=== PATIENT | male | born 1975 | race Hispanic/Latino ===

== ENCOUNTER 2017-04-24 07:28 | Inpatient (IN) | payer MEDICAID ==
[2017-04-24 07:28] VITALS: BMI 33.9
--- NOTE | 2017-04-24 07:55 | ED PDOC ---
Lower Extremity Pain/Injury Time Seen by Provider: 04/24/17 07:34 Chief Complaint (Nursing): Lower Extremity Problem/Injury Chief Complaint (Provider): left foot pain History Per: Patient History/Exam Limitations: no limitations Onset/Duration Of Symptoms: Days (x 1) Additional Complaint(s): Frandy Arreola is a 41 year old male, with a previous medical history of diabetes, who presents to the ED with complaints of left foot pain ingoing since yesterday after he was helping his friend clean her basement. Patient denies any trauma to the foot, numbness or tingling. PMD: none provided Past Medical History Reviewed: Historical Data, Nursing Documentation, Vital Signs Vital Signs: Last Vital Signs Temp 97 F L 04/24/17 07:42 Pulse 104 H 04/24/17 07:42 Resp 18 04/24/17 07:42 BP 146/71 04/24/17 07:42 Pulse Ox 97 04/24/17 07:42 - Medical History PMH: Anxiety, Arthritis, Depression, Diabetes, HTN Denies: Chronic Kidney Disease - Family History Family History: States: Unknown Family Hx - Immunization History Hx Tetanus Toxoid Vaccination: No Hx Influenza Vaccination: No Hx Pneumococcal Vaccination: No - Home Medications Home Medications: Ambulatory Orders Medication Instructions Recorded GlipiZIDE [Glipizide] 10 mg PO BID 04/25/17 Insulin Aspart [Novolog] 28 unit SC BID 04/25/17 Insulin Glargine, Recombina 28 unit SC BID 04/25/17 [Lantus] - Allergies Allergies/Adverse Reactions: Allergies Allergy/AdvReac Type Severity Reaction Status Date / Time NSAIDS (Non-Steroidal Allergy Verified 04/25/17 11:47 Anti-Inflamma Review of Systems ROS Statement: Except As Marked, All Systems Reviewed And Found Negative Musculoskeletal: Positive for: Foot Pain (left foot) Neurological: Negative for: Numbness, Other (tingling ) Physical Exam - Reviewed Nursing Documentation Reviewed: Yes Vital Signs Reviewed: Yes - Physical Exam Appears: Positive for: Well, Non-toxic, No Acute Distress Head Exam: Positive for: ATRAUMATIC, NORMAL INSPECTION, NORMOCEPHALIC Skin: Positive for: Normal Color, Warm, Dry Extremity: Positive for: Normal ROM, Tenderness, Pedal Edema, Swelling, Other ( abrasion to the anterior 5th digit on the left foot. + erythema, no crepitus ). Negative for: Deformity Neurologic/Psych: Positive for: Alert, Oriented - Laboratory Results Result Diagrams: 04/24/17 08:26 04/24/17 08:26 - ECG O2 Sat by Pulse Oximetry: 97 (RA) Pulse Ox Interpretation: Normal Medical Decision Making Medical Decision Making: Initial Plan: * labs * PTT * PT * blood culture * accu-check * x-ray left foot * podiatry consult * reevaluation 07:54 Podiatry consulted, requesting blood work and will be seeing patient at bedside. Scribe Attestation: Documented by Martine Humphrey, acting as a scribe for Martine Starr MD. Provider Scribe Attestation: All medical record entries made by the Scribe were at my direction and personally dictated by me. I have reviewed the chart and agree that the record accurately reflects my personal performance of the history, physical exam, medical decision making, and the department course for this patient. I have also personally directed, reviewed, and agree with the discharge instructions and disposition. Disposition - Clinical Impression Clinical Impression: Cellulitis of foot - Patient ED Disposition Is Patient to be Admitted: Yes - Disposition Disposition Time: 09:16 Condition: STABLE - Pt Status Changed To: Hospital Disposition Of: Inpatient - Admit Certification Admit to Inpatient:: After my assessment, the patient will require hospitalization for at least two midnights. This is because of the severity of symptoms shown, intensity of services needed, and/or the medical risk in this patient being treated as an outpatient. - POA Present On Arrival: Poor Glycemic Control
[2017-04-24 08:31] LABS: BASO # 0.1 K/uL (0.0-0.2); BASO % 0.7 % (0.0-2.0); EOS # 0.4 K/uL (0.0-0.7); EOS % 3.1 % (0.0-4.0); HEMOGLOBIN 13.5 g/dL (12.0-18.0); LYMPH # 2.7 K/uL (1.0-4.3); LYMPH % 19.7 % (20.0-40.0); MEAN CELL VOLUME 88.3 fl (80.0-94.0); MEAN CORPUSCULAR HEMOGLOBIN 30.5 pg (27.0-31.0); MEAN CORPUSCULAR HGB CONC 34.5 g/dL (33.0-37.0); MEAN PLATELET VOLUME 7.6 fl (7.2-11.7); MONO # 0.8 K/uL (0.0-0.8); MONO % 5.6 % (0.0-10.0); NEUT # 9.6 K/uL (1.8-7.0); NEUT % 70.9 % (50.0-75.0); NRBC % 0.1 % (0.0-0.0); RBC 4.42 Mil/uL (4.40-5.90); RED CELL DISTRIBUTION WIDTH 13.3 % (11.5-14.5); WHITE BLOOD COUNT 13.6 K/uL (4.8-10.8)
[2017-04-24 08:38] LABS: ALB/GLOB RATIO 1.4 (1.0-2.1); ALBUMIN 3.9 g/dL (3.5-5.0); ALT/SGPT 37 U/L (21-72); AST/SGOT 15 U/L (17-59); BLOOD UREA NITROGEN 22 mg/dl (9-20); CALCIUM 9.3 mg/dL (8.4-10.2); GFR AFRICAN-AMERICAN > 60; GFR NON-AFRICAN AMERICAN > 60
[2017-04-24 08:51] LABS: INR 1.1 (0.9-1.2); PARTIAL THROMBOPLASTIN TIME 30.8 Seconds (25.6-37.1); PROTHROMBIN TIME 12.2 Seconds (9.8-13.1)
[2017-04-24] MEDS ORDERED: Piperacillin/Tazobact 3.375 GM in Sodium Chloride 0.9% 100 ML IVPB STA (09:06)
--- NOTE | 2017-04-24 09:13 | CP.PCM.CON ---
History of Present Illness - History of Present Illness History of Present Illness: 41 y/o male with PMHx of DM, Anxiety, Arthritis, Depression, HTN seen at bedside in ED c/o pain in his left foot that is traveling up the leg secondary to open ulcer on the 5th digit. Pt states that he was helping his friend paint the basement yesterday and when he took his shoe off he noticed an open ulcer. Pt denies of any trauma to the foot. Pt states that he noticed his foot was swollen and red. Pt states that he is having pain that shoots up to his thigh. Pt denies of checking his blood sugar daily. Pt denies of knowing his HbA1c. Pt states that he follows up with his auto radiator specialist Dr. Alban De Los Santos. He states that he last saw his auto radiator specialist a year ago. Pt denies of any recent F/N/V/C/SOB. PMHx: Anxiety, Arthritis, Depression, Diabetes, HTN PSHx: Mastoid operation, Left foot 5th met operation, R foot surgery Allergies: NSAID SHx: Smoking (31 years 1 PPD), Denies of drinking and illicit drug usage Review of Systems - Constitutional Constitutional: As Per HPI Past Patient History - Infectious Disease Hx of Infectious Diseases: None - Past Social History Smoking Status: Heavy Smoker > 10 Cigarettes Daily - CARDIAC Hx Hypertension: Yes - PULMONARY Hx Respiratory Disorders: No - NEUROLOGICAL Hx Neurological Disorder: No - HEENT Hx HEENT Problems: No - RENAL Hx Chronic Kidney Disease: No - ENDOCRINE/METABOLIC Hx Diabetes Mellitus Type 2: Yes - HEMATOLOGICAL/ONCOLOGICAL Hx Blood Disorders: No - INTEGUMENTARY Hx Dermatological Problems: No - MUSCULOSKELETAL/RHEUMATOLOGICAL Hx Arthritis: Yes - GASTROINTESTINAL Hx Gastrointestinal Disorders: No - GENITOURINARY/GYNECOLOGICAL Hx Genitourinary Disorders: No - PSYCHIATRIC Hx Anxiety: Yes Hx Depression: Yes - SURGICAL HISTORY Hx Surgeries: Yes Other/Comment: "4 MASTOID OPERATIONS TO R EAR" - ANESTHESIA Hx Anesthesia: Yes Hx Anesthesia Reactions: No Hx Malignant Hyperthermia: No Meds Allergies/Adverse Reactions: Allergies Allergy/AdvReac Type Severity Reaction Status Date / Time NSAIDS (Non-Steroidal Allergy Verified 04/19/17 00:07 Anti-Inflamma - Medications Medications: Current Medications Vancomycin HCl 1 gm/ Sodium (Chloride) 250 mls @ 250 mls/hr IVPB STAT STA Stop: 04/24/17 10:05 Piperacillin Sod/Tazobactam (Sod 3.375 gm/ Sodium Chloride) 100 mls @ 100 mls/ hr IVPB STAT STA Stop: 04/24/17 10:05 Physical Exam - Constitutional Appears: Well, Non-toxic, No Acute Distress - Extremities Exam Additional comments: VASC: DP/PT pulses are palpable 1/4 of the left and 2/4 on right, 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 x 10, TG: warm to warm on left and warm to cool on right, non-pitting edema noted to the left foot, no edema noted on the right foot DERM: open ulcer on dorsum of the left 5th digit, wound bed is 70% granular 30% fibrotic, active serous drainage noted, no purulent drainage, no fluctuance, no probe to bone, no undermining, erythema streak extending proximally to ankle from forefoot; open lesion measuring 0.5cm on the dorsum of the 4th digit of the right foot with no active drainage or clinical suspicion of infection NEURO: protective sensation grossly diminished ORTHO: pain on palpation of the left 5th digit and forefoot - Neurological Exam Neurological exam: Alert, Oriented x3 - Psychiatric Exam Psychiatric exam: Normal Affect, Normal Mood Results - Vital Signs Recent Vital Signs: Last Vital Signs Temp 97 F L 04/24/17 07:42 Pulse 104 H 04/24/17 07:42 Resp 18 04/24/17 07:42 BP 146/71 04/24/17 07:42 Pulse Ox 97 04/24/17 07:59 - Labs Result Diagrams: 04/24/17 08:26 04/24/17 08:26 Labs: Laboratory Results - last 24 hr 04/24/17 04/24/17 04/24/17 08:26 08:26 08:26 WBC 13.6 H RBC 4.42 Hgb 13.5 Hct 39.1 MCV 88.3 MCH 30.5 MCHC 34.5 RDW 13.3 Plt Count 281 MPV 7.6 Neut % (Auto) 70.9 Lymph % (Auto) 19.7 L Maries % (Auto) 5.6 Eos % (Auto) 3.1 Baso % (Auto) 0.7 Neut # 9.6 H Lymph # 2.7 Maries # 0.8 Eos # 0.4 Baso # 0.1 PT 12.2 INR 1.1 APTT 30.8 Sodium 140 Potassium 4.0 Chloride 103 Carbon Dioxide 27 Anion Gap 13 BUN 22 H Creatinine 0.8 Est GFR ( Amer) > 60 Est GFR (Non-Af Amer) > 60 Random Glucose 262 H Calcium 9.3 Total Bilirubin 0.5 AST 15 L ALT 37 Alkaline Phosphatase 126 Total Protein 6.7 Albumin 3.9 Globulin 2.8 Albumin/Globulin Ratio 1.4 Assessment & Plan - Assessment and Plan (Free Text) Assessment: 41 y/o male seen at bedside in ED for open ulcer of the left 5th digit secondary to diabetic neuropathy Plan: Pt seen and evaluated in ED Pt discussed in details with attending Dr. Mott Vitals and labs reviewed (pt is afebrile and WBC @ 13.6) Wound culture taken X-rays taken of the left foot and reviewed Recommended IV abx Vanco/Zosyn as per Dr. Mott Dressing applied using betadine, DSD and kurlix Pt to be admitted under family medicine Podiatry to follow once in-house Thank you for the consult - Date & Time Date: 04/24/17 Time: 09:30
[2017-04-24] MEDS ORDERED: Piperacillin/Tazobact 3.375 gm Inj IVPB ONE (09:46)
[2017-04-24] MEDS ORDERED: Vancomycin 1 g Inj ONE (09:46)
--- NOTE | 2017-04-24 09:59 | CP.PCM.HP ---
History of Present Illness - History of Present Illness History of Present Illness: A 41 year old male with diabetes came for left foot pain and abrasion wound. He has had Type 2 diabetes since the age of 15. He says he takes lantus (he does not know the dose) and 28 units of Novolog insulin before each meal. He smokes one pack of cigarettes, and denies alcohol and drugs. He is unemployed. The podiatry did a wound dressing already. Present on Admission - Present on Admission Any Indicators Present on Admission: No History of DVT/PE: No History of Uncontrolled Diabetes: No Urinary Catheter: No Decubitus Ulcer Present: No Review of Systems - Cardiovascular Cardiovascular: As Per HPI - Gastrointestinal Gastrointestinal: As Per HPI - Genitourinary Genitourinary: As Per HPI - Musculoskeletal Musculoskeletal: As Per HPI (pain on right foot) Past Patient History - Infectious Disease Hx of Infectious Diseases: None - Past Social History Smoking Status: Heavy Smoker > 10 Cigarettes Daily - CARDIAC Hx Hypertension: Yes - PULMONARY Hx Respiratory Disorders: No - NEUROLOGICAL Hx Neurological Disorder: No - HEENT Hx HEENT Problems: No - RENAL Hx Chronic Kidney Disease: No - ENDOCRINE/METABOLIC Hx Diabetes Mellitus Type 2: Yes - HEMATOLOGICAL/ONCOLOGICAL Hx Blood Disorders: No - INTEGUMENTARY Hx Dermatological Problems: No - MUSCULOSKELETAL/RHEUMATOLOGICAL Hx Arthritis: Yes - GASTROINTESTINAL Hx Gastrointestinal Disorders: No - GENITOURINARY/GYNECOLOGICAL Hx Genitourinary Disorders: No - PSYCHIATRIC Hx Anxiety: Yes Hx Depression: Yes - SURGICAL HISTORY Hx Surgeries: Yes Other/Comment: "4 MASTOID OPERATIONS TO R EAR" - ANESTHESIA Hx Anesthesia: Yes Hx Anesthesia Reactions: No Hx Malignant Hyperthermia: No Meds Allergies/Adverse Reactions: Allergies Allergy/AdvReac Type Severity Reaction Status Date / Time NSAIDS (Non-Steroidal Allergy Verified 04/19/17 00:07 Anti-Inflamma Physical Exam - Eye Exam Pupil Exam: NORMAL ACCOMODATION - Respiratory Exam Respiratory Exam: NORMAL BREATHING PATTERN - Cardiovascular Exam Cardiovascular Exam: REGULAR RHYTHM - GI/Abdominal Exam GI & Abdominal Exam: Normal Bowel Sounds - Exam External exam: Lesions (left foot ulcer, swollen) Results - Vital Signs Recent Vital Signs: Last Vital Signs Temp 97 F L 04/24/17 07:42 Pulse 104 H 04/24/17 07:42 Resp 18 04/24/17 07:42 BP 146/71 04/24/17 07:42 Pulse Ox 97 04/24/17 09:11 - Labs Result Diagrams: 04/24/17 08:26 04/24/17 08:26 Assessment & Plan - Assessment and Plan (Free Text) Assessment: a 41 year old male who came with right foot ulcer diabetic food ulcer cellulitis Plan: wound dressing podiatry consult iv antibiotics, zosyn culture study diabetic control check HbA1c - Date & Time Date: 04/24/17 Time: 10:02 Decision To Admit - Pt Status Changed To: Hospital Disposition Of: Inpatient - Admit Certification Admit to Inpatient:: After my assessment, the patient will require hospitalization for at least two midnights. This is because of the severity of symptoms shown, intensity of services needed, and/or the medical risk in this patient being treated as an outpatient. - . Bed Request Type: Med/Surg Admitting Physician: Edilberto Brumfield
[2017-04-24] MEDS ORDERED: Piperacillin/Tazobact 3.375 GM in Sodium Chloride 0.9% 100 ML IVPB SCH (10:00)
--- NOTE | 2017-04-24 11:22 | RAD ---
PROCEDURE: Left Foot Radiographs. HISTORY: 5th digit pain COMPARISON: Comparison made with prior study 08/07/2016 FINDINGS: BONES: No evidence of acute displaced fracture nor dislocation. Status post resection head of the 5th metatarsal and questionably partial resection base of the proximal phalanx 5th toe. Heterotopic bone changes seen within the residual joint space and periosteal new bone along the distal aspect of the 5th metatarsal. There also appears to be proximal migration of the 5th digit. Prominence of the lateral and plantar soft tissues There is moderate to fairly significant hallux valgus deformity with minimal prominence of the overlying medial soft tissues. Mild lateral subluxation and flexion deformities the 2nd 3rd and 4th proximal phalanges. JOINTS: As above. SOFT TISSUES: No definitive gas seen within the soft tissues. OTHER FINDINGS: None. IMPRESSION: Postoperative resection changes of the head of the 5th metatarsal and possibly the base of the proximal phalanx 5th digit with surrounding heterotopic bone and periosteal new bone formation. . . There also appears to be proximal migration of the 5th digit. Prominence of the lateral and plantar soft tissues.
[2017-04-24 11:25] VITALS: BP 121/79; PULSE 85; RESP 20; TEMP 97.4
[2017-04-24] MEDS ORDERED: Insulin Regular 100 units/ml SC SCH (11:30)
[2017-04-24] MEDS ORDERED: Insulin Lispro (humaLOG) 100 Units/ml Inj SC SCH (11:30)
[2017-04-25] MEDS ORDERED: Enoxaparin 40 mg Syringe SC SCH (09:00)
[2017-04-27 09:59] VITALS: O2SAT 97
== END 2017-04-24 15:13 | disposition left against medical advice (07) | DRG 18 ==
LOC: H.ER 07:28 → H.ERHOLD 09:16 → H.MEDSURG1 10:40
PROVIDERS: ADMIT Internal Medicine; ATTEND Internal Medicine
DX: E11.40 Type 2 diabetes mellitus with diabetic neuropathy, unspecified (principal); L03.116 Cellulitis of left lower limb; E11.621 Type 2 diabetes mellitus with foot ulcer; L97.529 Non-pressure chronic ulcer of other part of left foot with unspecified severity; F17.210 Nicotine dependence, cigarettes, uncomplicated; I10 Essential (primary) hypertension; F41.9 Anxiety disorder, unspecified; M19.90 Unspecified osteoarthritis, unspecified site; F32.9 Major depressive disorder, single episode, unspecified

== ENCOUNTER 2018-06-13 20:02 | Inpatient (IN) | payer MEDICAID ==
[2018-06-13 20:20] VITALS: BMI 31.8
--- NOTE | 2018-06-13 21:13 | ED PDOC ---
Lower Extremity Pain/Injury Time Seen by Provider: 06/13/18 20:59 Chief Complaint (Nursing): Lower Extremity Problem/Injury Chief Complaint (Provider): left foot ulcer History Per: Patient History/Exam Limitations: no limitations Onset/Duration Of Symptoms: Days (1 week) Additional Complaint(s): 42 y/o male history of diabetes presents for evaluation of worsening ulcer to right foot x 1 week. Patient states it started small, so he picked at it and it has since grown in size with + drainage and pain. Denies fever, nausea/ vomiting, numbness/weakness right lower extremity, limitation of movement. Past Medical History Reviewed: Historical Data, Nursing Documentation, Vital Signs Vital Signs: Last Vital Signs Temp 98.4 F 06/13/18 20:20 Pulse 102 H 06/13/18 20:20 Resp 16 06/13/18 20:20 BP 123/70 06/13/18 20:20 Pulse Ox 98 06/13/18 20:20 - Medical History PMH: Anxiety, Arthritis (backs and LE), Bipolar Disorder, Depression, Diabetes, HTN, Schizophrenia (schizoaffective disorder) Denies: Chronic Kidney Disease - Family History Family History: States: Unknown Family Hx - Immunization History Hx Tetanus Toxoid Vaccination: No Hx Influenza Vaccination: No Hx Pneumococcal Vaccination: No - Home Medications Home Medications: Ambulatory Orders Medication Instructions Recorded GlipiZIDE [Glipizide] 10 mg PO BID 04/25/17 Insulin Aspart [Novolog] 28 unit SC BID 04/25/17 - Allergies Allergies/Adverse Reactions: Allergies Allergy/AdvReac Type Severity Reaction Status Date / Time NSAIDS (Non-Steroidal Allergy RASH Verified 06/13/18 20:20 Anti-Inflamma Review of Systems ROS Statement: Except As Marked, All Systems Reviewed And Found Negative Musculoskeletal: Positive for: Foot Pain (right) Physical Exam - Reviewed Nursing Documentation Reviewed: Yes Vital Signs Reviewed: Yes - Physical Exam Appears: Positive for: Well, Non-toxic, No Acute Distress Head Exam: Positive for: ATRAUMATIC, NORMAL INSPECTION, NORMOCEPHALIC Skin: Positive for: Normal Color Eye Exam: Positive for: Normal appearance ENT: Positive for: Normal ENT Inspection Cardiovascular/Chest: Positive for: Regular Rate, Rhythm Respiratory: Positive for: Normal Breath Sounds Pulses-Dorsalis Pedis (L): 2+ Pulses-Dorsalis Pedis (R): 2+ Pulses-Post. Tibialis (L): 2+ Pulses-Post. Tibialis (R): 2+ Extremity: Positive for: Normal ROM, Capillary Refill (<2 sec b/l LE), Other ( [id number] open ulceration plantar right foot base 1st digit. + drainage noted around borders, + surrounding tenderness. FROM RLE, distal NV/motor intact). Negative for: Calf Tenderness Neurologic/Psych: Positive for: Alert, Oriented - Laboratory Results Result Diagrams: 06/13/18 21:20 06/13/18 21:20 - ECG ECG: Positive for: Viewed By Me (reviewed by ED attending) ECG Rhythm: Positive for: Sinus Rhythm O2 Sat by Pulse Oximetry: 98 - Radiology X-Ray: Viewed By Me X-Ray Interpretation: No Acute Disease - Other Rad xray right foot X-Ray: Viewed By Ut X-Ray Interpretation: no acute findings - Progress ED Course And Treament: labs, xray, podiatry eval Patient evaluated by podiatry resident; recommends admission for IV abx and MRI in am IV vanco, IV zosyn, IV moprhine, IV fluids ordered Case discussed with Dr. Garcia, medical service on-call, recommends adding arterial doppler Disposition - Clinical Impression Clinical Impression: Diabetic foot ulcer, Uncontrolled diabetes mellitus - Patient ED Disposition Is Patient to be Admitted: No - Disposition Disposition Time: 23:30 Condition: FAIR - Pt Status Changed To: Hospital Disposition Of: Inpatient - Admit Certification Admit to Inpatient:: After my assessment, the patient will require hospitalization for at least two midnights. This is because of the severity of symptoms shown, intensity of services needed, and/or the medical risk in this patient being treated as an outpatient.
[2018-06-13] MEDS ORDERED: Povidone Iodine Topical 10% Sol ONE (22:15)
[2018-06-13 22:25] LABS: BASO # 0.1 K/uL (0.0-0.2); BASO % 0.6 % (0.0-2.0); EOS # 0.5 K/uL (0.0-0.7); HEMOGLOBIN 14.2 g/dL (12.0-18.0); LYMPH # 3.8 K/uL (1.0-4.3); LYMPH % 30.8 % (20.0-40.0); MEAN CELL VOLUME 89.7 fl (80.0-94.0); MEAN CORPUSCULAR HEMOGLOBIN 30.2 pg (27.0-31.0); MEAN CORPUSCULAR HGB CONC 33.6 g/dL (33.0-37.0); MEAN PLATELET VOLUME 8.1 fl (7.2-11.7); MONO # 0.7 K/uL (0.0-0.8); MONO % 5.5 % (0.0-10.0); NEUT # 7.2 K/uL (1.8-7.0); NEUT % 59.1 % (50.0-75.0); NRBC % 0.1 % (0.0-0.0); RBC 4.71 Mil/uL (4.40-5.90); RED CELL DISTRIBUTION WIDTH 13.3 % (11.5-14.5); WHITE BLOOD COUNT 12.2 K/uL (4.8-10.8)
[2018-06-13 22:28] LABS: ALB/GLOB RATIO 1.3 (1.0-2.1); ALBUMIN 4.1 g/dL (3.5-5.0); ALT/SGPT 29 U/L (21-72); AST/SGOT 17 U/L (17-59); BLOOD UREA NITROGEN 19 mg/dl (9-20); CALCIUM 9.5 mg/dL (8.4-10.2); GFR NON-AFRICAN AMERICAN > 60
[2018-06-13] MEDS ORDERED: Sodium Chloride 0.9% 1,000 ML IV STA (22:32)
--- NOTE | 2018-06-13 22:44 | CP.PCM.CON ---
History of Present Illness - History of Present Illness History of Present Illness: Podiatry consult notes for attending Dr. Carranza 42 y/o M patient with PMH of DM and diabetic neuropathy seen and evaluated in the ED for painful ulcer at his right foot. Patient states that he used to have callus under his right big toe. Patient states that the skin at his right foot started break down a week and half ago. Patient states that his took care of it and she used to do local wound care to his foot wound using a cream that he can't recall its name and dressing. Patient states that yesterday his gave to a baby so he had to take care of his wound himself. Patient states that he was surprised to see the wound like this today so he decided to come to the ED. Patient states that his wound is under his right big toe. painful, continuous throbbing pain. 10/10 on VAS scale. Patient states that he feels that his right foot is more swollen than his left one. He states that he didn't try any medications for the pain and he has to walk on the outer side of his foot. Patient denies any F/N/V/C or SOB. He states that he has neuropathy and he is taking Gabapentin 300 mg twice/day but it doesn't help him. He states that he has diabetes and it's non controlled as he can't control his food habits. He states that 1 and half year ago his left little toe got amputated after he stub it and didn't feel the injury due to his neuropathy. PMH: DM, diabetic neuropathy, anexiety, Arthritis, Bipolar Disorder, Depression , HTN and Schizophrenia PSH: Left 5th toe amputation Allergies: NSAID Social Hx: Smoker tobacco 1 pack/day, Denies drinking or illicit drug use. work in construction. Review of Systems - Review of Systems Review of Systems: As per HPI Past Patient History - Infectious Disease Hx of Infectious Diseases: None - Past Medical History & Family History Past Medical History?: Yes - Past Social History Smoking Status: Heavy Smoker > 10 Cigarettes Daily - CARDIAC Hx Hypertension: Yes - PULMONARY Hx Respiratory Disorders: No - NEUROLOGICAL Hx Neurological Disorder: No - HEENT Hx HEENT Problems: No - RENAL Hx Chronic Kidney Disease: No - ENDOCRINE/METABOLIC Hx Diabetes Mellitus Type 2: Yes - HEMATOLOGICAL/ONCOLOGICAL Hx Blood Disorders: No - INTEGUMENTARY Hx Dermatological Problems: No - MUSCULOSKELETAL/RHEUMATOLOGICAL Hx Arthritis: Yes (backs and LE) - GASTROINTESTINAL Hx Gastrointestinal Disorders: No - GENITOURINARY/GYNECOLOGICAL Hx Genitourinary Disorders: No - PSYCHIATRIC Hx Anxiety: Yes Hx Bipolar Disorder: Yes Hx Depression: Yes Hx Schizophrenia: Yes (schizoaffective disorder) - SURGICAL HISTORY Hx Surgeries: Yes Other/Comment: right ear surgery. right and left foot surgery - ANESTHESIA Hx Anesthesia: Yes Hx Anesthesia Reactions: No Hx Malignant Hyperthermia: No Meds Allergies/Adverse Reactions: Allergies Allergy/AdvReac Type Severity Reaction Status Date / Time NSAIDS (Non-Steroidal Allergy RASH Verified 06/13/18 20:20 Anti-Inflamma - Medications Medications: Current Medications Tramadol HCl (Ultram) 50 mg PO STAT STA Stop: 06/13/18 22:18 Last Admin: 06/13/18 22:23 Dose: 50 mg Physical Exam - Constitutional Appears: Well, Non-toxic, No Acute Distress - Head Exam Head Exam: ATRAUMATIC, NORMOCEPHALIC - Extremities Exam Additional comments: Right lower extremity focused exam: Vasc: DP/PT 1/4, Cap refill < 3 sec in all digits, Temp gradient warm to warmer from proximal to distal. Pedal hair present. Minimal non pitting edema in the left foot and ankle area. Nuero: Gross sensation intact, Protective sensation diminished, Ipswitch 0/3. Derm: Rounded superficial ulcer submet 1, Measures 3.5 cm in duiameter and 0.1 cm in depth, edges are mildly hyperkeratotic, malodor noted, minimal serous purulent, positive undermining, No tracking or probing to bone, Base is granular 100%. diffuse dryness of the skin of the plantar aspect of the foot. Erythema noted in the javed-wound area. MSK: muscle power couldn't be evaluated due to guarding because of pain. Pain on palpating the periulcerative area. pain with ROM of the left foot against resistance. Cavus foot type. - Neurological Exam Neurological exam: Alert, Oriented x3 Results - Vital Signs Recent Vital Signs: Last Vital Signs Temp 98.4 F 06/13/18 20:20 Pulse 102 H 06/13/18 20:20 Resp 16 06/13/18 20:20 BP 123/70 06/13/18 20:20 Pulse Ox 98 06/13/18 21:13 - Labs Result Diagrams: 06/13/18 21:20 06/13/18 21:20 Labs: Laboratory Results - last 24 hr 06/13/18 06/13/18 06/13/18 20:26 21:20 21:20 Sodium 140 Potassium 4.6 Chloride 104 Carbon Dioxide 31 H Anion Gap 10 BUN 19 Creatinine 0.9 Est GFR ( Amer) > 60 Est GFR (Non-Af Amer) > 60 POC Glucose (mg/dL) 220 H Random Glucose 247 H Lactic Acid 1.3 Calcium 9.5 Total Bilirubin 0.5 AST 17 D ALT 29 Alkaline Phosphatase 132 H Total Protein 7.3 Albumin 4.1 Globulin 3.1 Albumin/Globulin Ratio 1.3 Assessment & Plan - Assessment and Plan (Free Text) Assessment: 42 y/o M patient seen and evaluated in the ED for painful ulcer left submetatarsal 1. Plan: Patient seen and evaluated in the ED. Plan discussed in details with attending Dr. Carranza. Chart, Vitals and labs reviewed; WBCs 12.2, Afebrile. Right foot X-ray reviewed; Soft tissue swelling submet 1, No signs of osteomyelitis. Ulcer dressed using betadine, telfa, 4X4 gauze and kerlix. Patient to be admitted by the primary team. Patient ulcer will be dressed using silvadine cream and DSD while in house. Dispensed right surgical shoe. Patient instructed to ambulate in the surgical shoe. MRI ordered for the patient to be done after admission Podiatry will follow up the patient while in house. - Date & Time Date: 06/13/18 Time: 22:59
[2018-06-13] MEDS ORDERED: Piperacillin/Tazobact 3.375 GM in Sodium Chloride 0.9% 100 ML IV ONE (23:22)
[2018-06-13] MEDS ORDERED: Vancomycin 1 g Inj ONE (23:44)
[2018-06-13] MEDS ORDERED: Piperacillin/Tazobact 3.375 gm Inj IVPB ONE (23:45)
[2018-06-14 02:46] VITALS: BP 132/84; PULSE 81; RESP 18; TEMP 98.1; O2SAT 98
[2018-06-14] MEDS ORDERED: Silver Sulfadiazine 1% CREAM (50 gm) TOP SCH (07:00)
--- NOTE | 2018-06-14 08:48 | RAD ---
Date of service: 06/13/2018 HISTORY: admit COMPARISON: 08/05/2012. FINDINGS: LUNGS: The lungs are well inflated and clear. PLEURA: No significant pleural effusion identified, no pneumothorax apparent. CARDIOVASCULAR: Normal. OSSEOUS STRUCTURES: No significant abnormalities. VISUALIZED UPPER ABDOMEN: Normal. OTHER FINDINGS: None. IMPRESSION: No acute findings.
--- NOTE | 2018-06-14 09:08 | CARD ---
APPROVED REPORT Date of service: 06/14/2018 EKG Measurement Heart [id number] <Conclusion> Normal sinus rhythm Low voltage QRS Septal infarct, age undetermined Abnormal ECG
--- NOTE | 2018-06-14 10:10 | RAD ---
Date of service: 06/13/2018 PROCEDURE: Right Foot Radiographs. HISTORY: ulcer base 1st digit COMPARISON: None. FINDINGS: BONES: Bone alignment and mineralization are normal. There is no acute displaced fracture or bone destruction. JOINTS: Normal. SOFT TISSUES: There is soft tissue swelling in the plantar foot and forefoot. OTHER FINDINGS: None. IMPRESSION: Soft tissue swelling in the plantar foot and forefoot. No evidence for osteomyelitis
== END 2018-06-14 02:45 | disposition left against medical advice (07) | DRG 294 ==
LOC: H.ER 20:02 → H.ERHOLD 23:53 → H.MEDSURG1 06-14 02:08
PROVIDERS: ADMIT Family Medicine; ATTEND Family Medicine
DX: E11.621 Type 2 diabetes mellitus with foot ulcer (principal); E11.40 Type 2 diabetes mellitus with diabetic neuropathy, unspecified; L97.519 Non-pressure chronic ulcer of other part of right foot with unspecified severity; F20.9 Schizophrenia, unspecified; E11.65 Type 2 diabetes mellitus with hyperglycemia; Z89.422 Acquired absence of other left toe(s); F41.9 Anxiety disorder, unspecified; M19.90 Unspecified osteoarthritis, unspecified site; I10 Essential (primary) hypertension; F17.210 Nicotine dependence, cigarettes, uncomplicated; F31.9 Bipolar disorder, unspecified

== ENCOUNTER 2018-07-13 23:52 | Emergency (ER) | payer MEDICAID ==
[2018-07-13 23:52] VITALS: BMI 31.8
[2018-07-14 03:21] LABS: VENOUS BLOOD GAS BASE EXCESS 2.1 mmol/L (0.0-2.0); VENOUS BLOOD GAS PCO2 57 mmHg (40-60); VENOUS BLOOD GAS PO2 31 mm/Hg (30-55); VENOUS BLOOD PH 7.32 (7.32-7.43)
[2018-07-14] MEDS ORDERED: Morphine 4 MG/ML VIAL IVP ONE (03:24)
[2018-07-14] MEDS ORDERED: Piperacillin/Tazobact 3.375 GM in Sodium Chloride 0.9% 100 ML IVPB STA (03:25)
[2018-07-14 03:27] LABS: BASO # 0.1 K/uL (0.0-0.2); EOS # 0.5 K/uL (0.0-0.7); HEMOGLOBIN 12.5 g/dL (12.0-18.0); LYMPH % 25.9 % (20.0-40.0); MEAN CELL VOLUME 88.5 fl (80.0-94.0); MEAN CORPUSCULAR HEMOGLOBIN 30.4 pg (27.0-31.0); MEAN CORPUSCULAR HGB CONC 34.4 g/dL (33.0-37.0); MEAN PLATELET VOLUME 7.9 fl (7.2-11.7); MONO # 0.6 K/uL (0.0-0.8); MONO % 5.1 % (0.0-10.0); NEUT # 7.3 K/uL (1.8-7.0); NRBC % 0.1 % (0.0-0.0); RBC 4.12 Mil/uL (4.40-5.90); RED CELL DISTRIBUTION WIDTH 13.2 % (11.5-14.5); WHITE BLOOD COUNT 11.5 K/uL (4.8-10.8)
--- NOTE | 2018-07-14 03:32 | ED PDOC ---
Lower Extremity Pain/Injury Time Seen by Provider: 07/14/18 02:10 Chief Complaint (Nursing): Lower Extremity Problem/Injury Chief Complaint (Provider): Lower Extremity Problem History Per: Patient History/Exam Limitations: no limitations Onset/Duration Of Symptoms: Days (a couple of days) Current Symptoms Are (Timing): Still Present Additional Complaint(s): 42 year old male with history of dm, htn, presents with left foot ulcer and left foot swelling onset a couple of days. Patient reports he has had a wound since summer. He noticed the left foot pain, swelling, and discharge and developed fever a couple of days ago. Patient has an ulcer on right food for months, but denies any discharge or pain to the area. Patient has been to [facility] multiple times for his right foot ulcer. PMD: None Past Medical History Reviewed: Historical Data, Nursing Documentation, Vital Signs Vital Signs: Last Vital Signs Temp 98.4 F 07/14/18 00:29 Pulse 106 H 07/14/18 00:29 Resp 18 07/14/18 00:29 BP 142/83 07/14/18 00:29 Pulse Ox 98 07/14/18 00:29 - Medical History PMH: Anxiety, Arthritis (backs and LE), Bipolar Disorder, Depression, Diabetes, HTN, Schizophrenia (schizoaffective disorder) Denies: Chronic Kidney Disease - Surgical History Other surgeries: amputation of left 5th toe - Family History Family History: States: Unknown Family Hx - Immunization History Hx Tetanus Toxoid Vaccination: No Hx Influenza Vaccination: No Hx Pneumococcal Vaccination: No - Home Medications Home Medications: Ambulatory Orders Medication Instructions Recorded Insulin Aspart [Novolog] 28 unit SC BID 04/25/17 Insulin Glargine,Hum.rec.anlog 28 unit SQ BID 07/14/18 [Lantus] - Allergies Allergies/Adverse Reactions: Allergies Allergy/AdvReac Type Severity Reaction Status Date / Time NSAIDS (Non-Steroidal Allergy RASH Verified 07/14/18 21:39 Anti-Inflamma Review of Systems ROS Statement: Except As Marked, All Systems Reviewed And Found Negative Constitutional: Positive for: Fever Musculoskeletal: Positive for: Foot Pain (left foot ulcer) Physical Exam - Reviewed Nursing Documentation Reviewed: Yes Vital Signs Reviewed: Yes - Physical Exam Appears: Positive for: Non-toxic, No Acute Distress Cardiovascular/Chest: Positive for: Regular Rate, Rhythm. Negative for: Murmur Respiratory: Positive for: Normal Breath Sounds. Negative for: Respiratory Distress Extremity: Positive for: Other (Left foot: diffuse swelling, more in left lateral aspect, tenderness on left lateral aspect, wound on plantar aspect foot , diffuse tenderness everywhere and more significant tenderness around wound, erythema around wound, swelling of whole foot. Right foot: 3 cm in diameter wound, no discharge, no erythema, no tenderness) Neurologic/Psych: Positive for: Alert, Oriented (x3) - Laboratory Results Result Diagrams: 07/14/18 03:05 07/14/18 03:05 - ECG O2 Sat by Pulse Oximetry: 98 (RA) Pulse Ox Interpretation: Normal Medical Decision Making Medical Decision Making: Time: 227 Initial Impression: left foot ulcer Differential diagnoses include but are not limited to: infection with cellulitis , possible osteomyelitis Initial Plan: --VBG --BMP --CBC with differentials --Erythrocyte sedimentation rate --Blood culture --Wound culture --Left foot XR --Right foot XR Time: 320 --Case discussed with podiatry resident, who will see the patient. Scribe Attestation: Documented by Piedad Buenrostro, acting as a scribe for Amol So MD Provider Scribe Attestation: All medical record entries made by the Scribe were at my direction and personally dictated by me. I have reviewed the chart and agree that the record accurately reflects my personal performance of the history, physical exam, medical decision making, and the department course for this patient. I have also personally directed, reviewed, and agree with the discharge instructions and disposition. Disposition - Clinical Impression Clinical Impression: Foot ulcer, Cellulitis of foot, Hyperglycemia - Patient ED Disposition Is Patient to be Admitted: Yes Discussed With : Brian Rucker Counseled Patient/Family Regarding: Studies Performed, Diagnosis - Disposition Disposition Time: 05:00 Condition: FAIR - Pt Status Changed To: Hospital Disposition Of: Inpatient - Admit Certification Admit to Inpatient:: After my assessment, the patient will require hospitalization for at least two midnights. This is because of the severity of symptoms shown, intensity of services needed, and/or the medical risk in this patient being treated as an outpatient. - POA Present On Arrival: Poor Glycemic Control, Pressure Ulcer
[2018-07-14] MEDS ORDERED: Vancomycin 1 g Inj ONE (03:33)
[2018-07-14] MEDS ORDERED: Piperacillin/Tazobact 3.375 gm Inj IVPB ONE (03:33)
[2018-07-14] MEDS ORDERED: Morphine 4 MG/ML VIAL ONE (03:33)
[2018-07-14 03:34] LABS: BLOOD UREA NITROGEN 26 mg/dl (9-20); GFR NON-AFRICAN AMERICAN > 60
[2018-07-14] MEDS ORDERED: Sodium Chloride 0.9% 1,000 ML IV STA (04:06)
[2018-07-14] MEDS ORDERED: Dextrose 50% SYRINGE Inj (50 ml) IV PRN (07:28)
[2018-07-14] MEDS ORDERED: Glucagon Recombinant 1 mg Inj IM PRN (07:28)
[2018-07-14 08:40] VITALS: BP 143/83; PULSE 95; RESP 15; TEMP 98.3
--- NOTE | 2018-07-14 09:44 | CP.PCM.PCO ---
Physician Communication Note - Physician Communication Note Physician Communication Note: Patient signed out AMA prior to seeing patient for podiatry consult.
--- NOTE | 2018-07-14 09:47 | RAD ---
Date of service: 07/14/2018 PROCEDURE: Left Foot Radiographs. HISTORY: left foot pain COMPARISON: Two thousand seventeen FINDINGS: BONES: Postoperative a section of the head of the 5th metatarsal. Associated surrounding soft tissue swelling and gas. Sclerotic changes of the 5th metatarsal shaft suspicious for chronic osteomyelitis. JOINTS: Normal. SOFT TISSUES: Normal. OTHER FINDINGS: None. IMPRESSION: Postoperative a section of the head of the 5th metatarsal. Associated surrounding soft tissue swelling and gas. Sclerotic changes of the 5th metatarsal shaft suspicious for chronic osteomyelitis.
--- NOTE | 2018-07-14 09:59 | RAD ---
Date of service: 07/14/2018 PROCEDURE: Right Foot Radiographs. HISTORY: right foot pain COMPARISON: None. FINDINGS: BONES: Normal. No fracture. JOINTS: Multiple hammertoe deformities SOFT TISSUES: Normal. OTHER FINDINGS: None. IMPRESSION: No fracture.
[2018-07-14] MEDS ORDERED: Insulin Lispro (humaLOG) 100 Units/ml Inj SC SCH (10:00)
--- NOTE | 2018-07-14 18:55 | HP ---
CHIEF COMPLAINT: Throat pain. HISTORY OF PRESENT ILLNESS: This is a 42-year-old male, known to have diabetes, hypertension, peripheral vascular disease, neuropathy, who was having left foot ulcer, purulent swelling, and pain for few days, which got worse. The patient has this wound for a long time, but he has noticed some yellow discharge, so the patient was brought into the emergency room and was admitted for further management. REVIEW OF SYSTEMS: Positive for bilateral leg pain, generalized weakness, malaise, fatigue, tired. Review of systems is negative for headache, dizziness, syncope, loss of consciousness, chest pain, shortness of breath, nausea, vomiting, diarrhea, or constipation. Review of systems of all other organ systems are unremarkable. PAST MEDICAL HISTORY: Significant for diabetes, hypertension, psychiatric disorder, namely bipolar disorder, depression, schizophrenia, arthritis, and anxiety. PAST SURGICAL HISTORY: Remarkable for amputation of left fifth toe. PERSONAL HISTORY: The patient is currently nonsmoker, nondrinker, no substance abuse. Very non-compliant with medications. The patient had multiple emergency room visits for mainly right foot ulcer. FAMILY HISTORY: Noncontributory. MEDICATIONS: The patient is supposed to be glipizide and insulin, seems to be non-compliant patient although. ALLERGIES: THE PATIENT IS ALLERGIC TO NSAIDS. PHYSICAL EXAMINATION: GENERAL: Well-built, well-nourished, overweight 42-year-old male, in no acute distress. VITAL SIGNS: Temperature 98.5, pulse 88, respirations 18, and blood pressure 140/72. HEENT: Pupils reacting to light. No JVD. No thyromegaly. No lymphadenopathy. No nystagmus. Normocephalic, atraumatic skull. HEART: S1 and S2, normal and regular. No significant murmurs, gallops, or rubs are heard. LUNGS: Shows good bilateral air exchange. No rales or rhonchi. ABDOMEN: Soft, nontender. No organomegaly. No fluid. Bowel sounds are present and normal. EXTREMITIES: Right lower extremity has eschar-covered plantar ulcer at big toe, that left foot has ulcer, status post amputation, a big purulent swelling along the lateral distal border, this ____ to oozing and discharge and a deep ulcer. No sign of acute ischemia. No calf swelling. No tenderness. BIOMEDICAL SPECIALIST: Exam is essentially unchanged. DIAGNOSTIC DATA: Available diagnostic data reviewed. WBC 11.5, hemoglobin 12.5, hematocrit 36.5, and platelets 346. ESR is 81, lactic acid is 2.1. Sodium 140, potassium 4.7, chloride 105, bicarb 26, BUN 26, creatinine 1, sugar is 346. ADMITTING IMPRESSION: Cellulitis and aphthous ulcer, left foot, rule out osteomyelitis, peripheral vascular disease, type 2 diabetes with hyperglycemia, anxiety, depression, bipolar disorder, obesity with body mass index of 32. PLAN: As ordered. Case and plan discussed with the patient. Brian Rucker MD
[2018-07-14 23:05] VITALS: O2SAT 98
[2018-07-14] MEDS ORDERED: Povidone Iodine Topical 10% Sol ONE (23:20)
--- NOTE | 2018-07-15 00:59 | CP.PCM.CON ---
Addendum entered and electronically signed by Braden Christianson DPM 07/17/18 14:40: Debridement of nonviable tissue including undermining tissue excised with a scissor and a pickup to the level of dermis/subcutaneous junction at the lateral plantar sub met 5 of the left foot until healthier wound bed and vital tissue appeared. Original Note: History of Present Illness - History of Present Illness History of Present Illness: Podiatry Consult Note- Dr. Eid 42M with PMHx of DM with neuropathy, HTN, arthritis, bipolar Disorder, depression, anxiety, and schizophrenia presents to the ED for worsening bilateral foot ulcerations R>L. Patient reports that in the last week, noticed increase in swelling and redness to left foot. Reports has been working a lot on the ladder. Patient reports that he has history of left foot infection requiring left 5th digit amputation. Patient rates lower extremity pain 9/10. Also reports numbness and tingling secondary to bilateral feet. Patient denies nausea, fever, shortness of breath, chest pains or chills. Denies having primary care physician PMH: DM with neuropathy, HTN, arthritis, bipolar Disorder, depression, anxiety, and schizophrenia PSH: left 5th digit amputation (Dr. Alban Carlisle DPM from [facility]), multiple ear surgery ALL: NSAID (swelling) MEDS: insulin FH: denies SH: reports smoking 1ppd 15 years, denies drinking EtOH or illicit drug use Past Patient History - Infectious Disease Hx of Infectious Diseases: None - Past Medical History & Family History Past Medical History?: Yes - Past Social History Smoking Status: Heavy Smoker > 10 Cigarettes Daily - CARDIAC Hx Hypertension: Yes - PULMONARY Hx Respiratory Disorders: No - NEUROLOGICAL Hx Neurological Disorder: No - HEENT Hx HEENT Problems: No - RENAL Hx Chronic Kidney Disease: No - ENDOCRINE/METABOLIC Hx Diabetes Mellitus Type 2: Yes - HEMATOLOGICAL/ONCOLOGICAL Hx Blood Disorders: No - INTEGUMENTARY Hx Dermatological Problems: No - MUSCULOSKELETAL/RHEUMATOLOGICAL Hx Arthritis: Yes (backs and LE) - GASTROINTESTINAL Hx Gastrointestinal Disorders: No - GENITOURINARY/GYNECOLOGICAL Hx Genitourinary Disorders: No - PSYCHIATRIC Hx Anxiety: Yes Hx Bipolar Disorder: Yes Hx Depression: Yes Hx Schizophrenia: Yes (schizoaffective disorder) - SURGICAL HISTORY Hx Surgeries: Yes Other/Comment: right ear surgery. right and left foot surgery - ANESTHESIA Hx Anesthesia: Yes Hx Anesthesia Reactions: No Hx Malignant Hyperthermia: No Meds Allergies/Adverse Reactions: Allergies Allergy/AdvReac Type Severity Reaction Status Date / Time NSAIDS (Non-Steroidal Allergy RASH Verified 07/14/18 21:39 Anti-Inflamma - Medications Medications: Current Medications Dextrose (Dextrose 50% Inj) 0 ml IV STAT PRN; Protocol PRN Reason: Hypoglycemia Protocol Dextrose (Glutose 15) 0 gm PO ONCE PRN; Protocol PRN Reason: Hypoglycemia Protocol Glucagon (Glucagen Diagnostic Kit) 0 mg IM STAT PRN; Protocol PRN Reason: Hypoglycemia Protocol Insulin Human Lispro (Humalog) 0 units SC Q6 YARY PRN Reason: Protocol Physical Exam - Extremities Exam Extremities exam: Negative for: calf tenderness Additional comments: Bilateral lower extremity focused exam: Vasc: DP/PT 1/4, Cap refill < 3 sec in all digits, temperature gradient warm to warm from proximal to distal. Pedal hair present. Minimal non pitting edema in the left foot and ankle area. Neuro: Gross sensation intact, protective sensation diminished Derm: Right: Circular ulceration measuring approximately 3.5 cm in diameter x .2 cm. Periwound mildly hyperkeratotic, malodor noted, minimal serous purulent, positive undermining, No tracking or probing to bone, Base is granular 100%. Diffuse dryness of the skin of the plantar aspect of the foot. Erythema noted in the javed-wound area. Left: Ulceration noted to the lateral aspect of forefoot at sub metatarsal 5 measuring approximately 3 cm x 3 cm x .2, erythema, with undermining noted. No tunneling, no active drainage, no probe to bone; large portion of periwound macerated with nonviable undermining and skin lifted from ulceration with likely larger ulceration noted, (+) mild odor, no fluctanance or abscess appreciated, no streaking Ortho: cavus foot type; pain with palpation to skin surrounding ulcerations, AROM 1-5 present Results - Vital Signs Recent Vital Signs: Last Vital Signs Temp 98.3 F 07/14/18 08:29 Pulse 95 H 07/14/18 08:29 Resp 15 07/14/18 08:29 BP 143/83 07/14/18 08:29 Pulse Ox 98 07/14/18 23:05 - Labs Result Diagrams: 07/14/18 03:05 07/14/18 03:05 Labs: Laboratory Results - last 24 hr 07/14/18 07/14/18 07/14/18 02:38 03:05 03:05 WBC 11.5 H RBC 4.12 L Hgb 12.5 Hct 36.5 MCV 88.5 MCH 30.4 MCHC 34.4 RDW 13.2 Plt Count 346 MPV 7.9 Neut % (Auto) 64.0 Lymph % (Auto) 25.9 [place] % (Auto) 5.1 Eos % (Auto) 4.0 Baso % (Auto) 1.0 Neut # (Auto) 7.3 H Lymph # (Auto) 3.0 [place] # (Auto) 0.6 Eos # (Auto) 0.5 Baso # (Auto) 0.1 ESR 81 H pO2 31 VBG pH 7.32 VBG pCO2 57 VBG HCO3 25.6 VBG Total CO2 31.1 H VBG O2 Sat (Calc) 66.3 H VBG Base Excess 2.1 H VBG Potassium 4.4 Sodium 135.0 140 Chloride 104.0 105 Glucose 363 H Lactate 2.1 FiO2 21.0 Potassium 4.7 Carbon Dioxide 26 Anion Gap 14 BUN 26 H Creatinine 1.0 Est GFR ( Amer) > 60 Est GFR (Non-Af Amer) > 60 Random Glucose 346 H Calcium 9.0 Venous Blood Potassium 4.4 Assessment & Plan - Assessment and Plan (Free Text) Assessment: 2M with PMHx of DM with neuropathy, HTN, arthritis, bipolar Disorder, depression, anxiety, and schizophrenia with worsening bilateral foot ulcerations R>L, and L 5th metatarsal (+) OM Plan: Patient seen and examined Discussed plan in detail with attending Dr. Eid Labs, vitals, chart reviewed, afebrile, leukocytosis WBC=13.6 X-rays reviewed: L foot X-ray Impression: Postoperative a section of the head of the 5th metatarsal. Associated surrounding soft tissue swelling and gas. Sclerotic changes of the 5th metatarsal shaft suspicious for chronic osteomyelitis. R foot X-ray - no fracture Wound culture taken of left foot no 07/14/18- pending ID consult once admitted- recommendations appreciated c/w Zosyn and Vanco ESR= 81 Bilateral foot cleansed with copious saline solution Dressed right foot with betadine soaked gauze, dsd, and kerlix With the use of scissors and pickup, nonviable undermining tissue excised and removed surrounding left foot lateral ulceration, exposing larger ulceration underneath. Patient tolerated well. Did not appreciate any gas or drainage with physical examination. Dressed left foot with betadine soaked gauze, dsd, and kerlix Will likely need to debride more nonviable tissue at bedside once on floors Patient to WBAT to the heels in surgical shoe May need MRI of bilateral foot once on floors Thank you for allowing us to participate and patient's care
== END 2018-07-14 08:35 | disposition home or self-care (01) ==
LOC: H.ER 23:52 → UNDOADMIN 07-14 05:30 → H.ERHOLD 07-14 05:30 → UNDODISIN 07-14 08:35
DX: L97.929 Non-pressure chronic ulcer of unspecified part of left lower leg with unspecified severity (principal); E11.9 Type 2 diabetes mellitus without complications; L03.116 Cellulitis of left lower limb
CPT/HCPCS: 73630; 80048; 82803; 85025; 85651; 87040; 87070; 87181; 96374; 99285; J2270; J2543; J7030

== ENCOUNTER 2018-07-14 21:35 | Inpatient (IN) | payer MEDICAID ==
[2018-07-14 21:36] VITALS: BMI 31.8
[2018-07-15 00:32] LABS: BASO # 0.3 K/uL (0.0-0.2); BASO % 1.9 % (0.0-2.0); EOS # 0.5 K/uL (0.0-0.7); EOS % 3.4 % (0.0-4.0); HEMOGLOBIN 13.1 g/dL (12.0-18.0); LYMPH # 3.5 K/uL (1.0-4.3); LYMPH % 25.4 % (20.0-40.0); MEAN CELL VOLUME 88.7 fl (80.0-94.0); MEAN CORPUSCULAR HEMOGLOBIN 30.5 pg (27.0-31.0); MEAN CORPUSCULAR HGB CONC 34.3 g/dL (33.0-37.0); MEAN PLATELET VOLUME 7.4 fl (7.2-11.7); MONO # 0.6 K/uL (0.0-0.8); MONO % 4.2 % (0.0-10.0); NEUT # 8.9 K/uL (1.8-7.0); NEUT % 65.1 % (50.0-75.0); RBC 4.29 Mil/uL (4.40-5.90); WHITE BLOOD COUNT 13.6 K/uL (4.8-10.8)
[2018-07-15 00:34] LABS: VENOUS BLOOD GAS BASE EXCESS 1.4 mmol/L (0.0-2.0); VENOUS BLOOD GAS PCO2 43 mmHg (40-60); VENOUS BLOOD GAS PO2 51 mm/Hg (30-55)
[2018-07-15 01:31] LABS: ALB/GLOB RATIO 1.1 (1.0-2.1); ALBUMIN 3.6 g/dL (3.5-5.0); ALT/SGPT 27 U/L (21-72); AST/SGOT 17 U/L (17-59); BLOOD UREA NITROGEN 20 mg/dl (9-20); CALCIUM 9.5 mg/dL (8.4-10.2); GFR NON-AFRICAN AMERICAN > 60
[2018-07-15] MEDS ORDERED: Piperacillin/Tazobact 3.375 GM in Sodium Chloride 0.9% 100 ML IV STA (04:27)
--- NOTE | 2018-07-15 05:30 | ED PDOC ---
Addendum entered and electronically signed by Mehran Morton PA 07/16/18 14:53: Addendum Addendum: 07/16/18 14:53 wound cx noted MRSA and Providencia Rettgeri. D/w patient. cipro 500mg bid x [facility] Patient advised to f/u with pmd or podiatry. Original Note: Lower Extremity Pain/Injury Time Seen by Provider: 07/14/18 21:44 Chief Complaint (Nursing): Lower Extremity Problem/Injury Chief Complaint (Provider): Ulcers, bilateral feet History Per: Patient History/Exam Limitations: no limitations Onset/Duration Of Symptoms: Days Current Symptoms Are (Timing): Still Present Additional Complaint(s): 42 yo male with DM presents for evaluation of bilateral foot ulcers. Pt was seen in ER yesterday and admitted however left AMA because he had to take care of some "personal issues". Pt states he returns with continued pain. No fever/chills. No drainage. Past Medical History Reviewed: Historical Data, Nursing Documentation, Vital Signs Vital Signs: Last Vital Signs Temp 98.1 F 07/14/18 21:39 Pulse 96 H 07/14/18 21:39 Resp 20 07/14/18 21:39 BP 126/75 07/14/18 21:39 Pulse Ox 97 07/14/18 21:39 - Medical History PMH: Anxiety, Arthritis (backs and LE), Bipolar Disorder, Depression, Diabetes, HTN, Schizophrenia (schizoaffective disorder) Denies: Chronic Kidney Disease - Surgical History Other surgeries: Toe amputation - Family History Family History: States: Unknown Family Hx - Living Arrangements Living Arrangements: With Family - Social History Current smoker - smoking cessation education provided: No - Immunization History Hx Tetanus Toxoid Vaccination: No Hx Influenza Vaccination: No Hx Pneumococcal Vaccination: No - Home Medications Home Medications: Ambulatory Orders Medication Instructions Recorded Insulin Aspart [Novolog] 28 unit SC BID 04/25/17 Insulin Glargine,Hum.rec.anlog 28 unit SQ BID 07/14/18 [Lantus] - Allergies Allergies/Adverse Reactions: Allergies Allergy/AdvReac Type Severity Reaction Status Date / Time NSAIDS (Non-Steroidal Allergy RASH Verified 07/14/18 21:39 Anti-Inflamma Review of Systems ROS Statement: Except As Marked, All Systems Reviewed And Found Negative Constitutional: Negative for: Fever, Chills Musculoskeletal: Positive for: Foot Pain, Other Skin: Positive for: Other Physical Exam - Reviewed Nursing Documentation Reviewed: Yes Vital Signs Reviewed: Yes - Physical Exam Appears: Positive for: Well, Non-toxic, No Acute Distress Head Exam: Positive for: ATRAUMATIC, NORMAL INSPECTION, NORMOCEPHALIC Skin: Positive for: Warm. Negative for: Normal Color (Ulcers on bilateral plantar surface of feet, previous amputations ) Eye Exam: Positive for: Normal appearance ENT: Positive for: Normal ENT Inspection Neck: Positive for: Normal, Painless ROM Cardiovascular/Chest: Positive for: Regular Rate, Rhythm Respiratory: Positive for: Normal Breath Sounds. Negative for: Accessory Muscle Use, Respiratory Distress Back: Positive for: Normal Inspection Extremity: Positive for: Normal ROM Neurologic/Psych: Positive for: Alert, Oriented - Laboratory Results Result Diagrams: 07/15/18 00:21 07/15/18 00:21 - ECG O2 Sat by Pulse Oximetry: 97 Medical Decision Making Medical Decision Making: Podiatry consult completed. New dressings placed. Antibiotics ordered. Admission to Dr. Rucker for cellulitis, diabetic foot ulcers Disposition - Clinical Impression Clinical Impression: Cellulitis, Diabetic foot ulcer - Patient ED Disposition Is Patient to be Admitted: Yes - Disposition Disposition Time: 06:11 Condition: STABLE - Pt Status Changed To: Hospital Disposition Of: Inpatient - Admit Certification Admit to Inpatient:: After my assessment, the patient will require hospitalization for at least two midnights. This is because of the severity of symptoms shown, intensity of services needed, and/or the medical risk in this pa tient being treated as an outpatient. - POA Present On Arrival: None
[2018-07-15] MEDS ORDERED: Vancomycin 1 g Inj ONE (05:43)
[2018-07-15] MEDS ORDERED: Acetaminophen-Codeine 300/30 mg Tab PO PRN (07:46)
[2018-07-15 08:41] VITALS: RESP 20
[2018-07-15] MEDS ORDERED: Enoxaparin 40 mg Syringe SC SCH (09:00)
[2018-07-15] MEDS: Insulin Detemir 100 Units/ml Inj SC SCH ×2 (09:13→18:09)
[2018-07-15] MEDS: Insulin Lispro (humaLOG) 100 Units/ml Inj SC SCH ×2 (11:33→18:08)
[2018-07-15] MEDS: Piperacillin/Tazobact 3.375 GM in Sodium Chloride 0.9% 100 ML IVPB SCH ×2 (12:15→18:13)
--- NOTE | 2018-07-15 14:16 | CP.PCM.CON ---
History of Present Illness - History of Present Illness History of Present Illness: 42 yo male with DM presents for evaluation of bilateral foot ulcers. 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 Also smokes but refusing smoking sessation measures here - Medical History PMH: Anxiety, Arthritis (backs and LE), Bipolar Disorder, Depression, Diabetes, HTN, Schizophrenia (schizoaffective disorder) Denies: Chronic Kidney Disease - Surgical History Other surgeries: Toe amputation Review of Systems - Review of Systems All systems: reviewed and no additional remarkable complaints except - Constitutional Constitutional: As Per HPI - EENT Eyes: absent: As Per HPI, Blind Spots, Blurred Vision, Change in Vision, Decreased Night Vision, Diplopia, Discharge, Dry Eye, Exophthalmos, Floaters, Irritation, Itchy Eyes, Loss of Peripheral Vision, Pain, Photophobia, Requires Corrective Lenses, Sees Flashes, Spots in Vision, Tunnel Vision, Other Visual Disturbances, Loss of Vision, Other Ears: absent: As Per HPI, Decreased Hearing, Ear Discharge, Ear Pain, Tinnitus, Abnormal Hearing, Disequilibrium, Dizziness, Other Nose/Mouth/Throat: absent: As Per HPI, Epistaxis, Nasal Congestion, Nasal Discharge, Nasal Obstruction, Nasal Trauma, Nose Pain, Post Nasal Drip, Sinus Pain, Sinus Pressure, Bleeding Gums, Change in Voice, Dental Pain, Dry Mouth, Dysphagia, Halitosis, Hoarsness, Lip Swelling, Mouth Lesions, Mouth Pain, Odynophagia, Sore Throat, Throat Swelling, Tongue Swelling, Facial Pain, Neck Pain, Neck Mass, Other - Cardiovascular Cardiovascular: absent: As Per HPI, Acrocyanosis, Chest Pain, Chest Pain at Rest , Chest Pain with Activity, Claudication, Diaphoresis, Dyspnea, Dyspnea on Exertion, Edema, Irregular Heart Rhythm, Pain Radiating to Arm/Neck/Jaw, Leg Edema, Leg Ulcers, Lightheadedness, Orthopnea, Palpitations, Paroxysmal Nocturnal Dyspnea, Pedal Edema, Radiating Pain, Rapid Heart Rate, Slow Heart Rate, Syncope, Other - Respiratory Respiratory: absent: As Per HPI, Cough, Dyspnea, Hemoptysis, Dyspnea on Exertion , Wheezing, Snoring, Stridor, Pain on Inspiration, Chest Congestion, Excessive Mucous Production, Change in Mucous Color, Pain with Coughing, Other - Gastrointestinal Gastrointestinal: absent: As Per HPI, Abdominal Pain, Belching, Bloating, Change in Bowel Habits, Change in Stool Character, Coffee Ground Emesis, Constipation, Cramping, Diarrhea, Dyspepsia, Dysphagia, Early Satiety, Excessive Flatus, Fecal Incontinence, Heartburn, Hematemesis, Hematochezia, Loose Stools, Melena, Nausea, Odynophagia, Temesmus, Vomiting, Other - Genitourinary Genitourinary: absent: As Per HPI, Change in Urinary Stream, Difficulty Urinating, Dysuria, Flank Pain, Hematuria, Pyuria, Nocturia, Urinary Incontinence, Urinary Frequency, Urinary Hesitance, Urinary Urgency, Voiding Freq/Small Amts, Freq UTI, Hx Renal/Bladder Calculi, Hx /Renal Surgery, Bladder Distension, Other - Musculoskeletal Musculoskeletal: absent: As Per HPI, Abnormal Gait, Arthralgias, Atrophy, Back Pain, Deformity, Joint Swelling, Limited Range of Motion, Loss of Height, Muscle Cramps, Muscle Weakness, Myalgias, Neck Pain, Numbness, Radiating Pain into Limb, Stiffness, Tingling, Other - Integumentary Integumentary: As Per HPI - Neurological Neurological: As Per HPI - Psychiatric Psychiatric: As Per HPI - Endocrine Endocrine: As Per HPI - Hematologic/Lymphatic Hematologic: absent: As Per HPI, Easy Bleeding, Easy Bruising, Lymphadenopathy, Other Past Patient History - Infectious Disease Hx of Infectious Diseases: None - Past Medical History & Family History Past Medical History?: Yes - Past Social History Smoking Status: Heavy Smoker > 10 Cigarettes Daily - CARDIAC Hx Cardiac Disorders: Yes Hx Hypertension: Yes - PULMONARY Hx Respiratory Disorders: No - NEUROLOGICAL Hx Neurological Disorder: No - HEENT Hx HEENT Problems: No - RENAL Hx Chronic Kidney Disease: No - ENDOCRINE/METABOLIC Hx Endocrine Disorders: Yes Hx Diabetes Mellitus Type 2: Yes - HEMATOLOGICAL/ONCOLOGICAL Hx Blood Disorders: No - INTEGUMENTARY Hx Dermatological Problems: No - MUSCULOSKELETAL/RHEUMATOLOGICAL Hx Arthritis: Yes (backs and LE) - GASTROINTESTINAL Hx Gastrointestinal Disorders: No - GENITOURINARY/GYNECOLOGICAL Hx Genitourinary Disorders: No - PSYCHIATRIC Hx Anxiety: Yes Hx Bipolar Disorder: Yes Hx Depression: Yes Hx Schizophrenia: Yes (schizoaffective disorder) Hx Substance Use: Yes (former) - SURGICAL HISTORY Hx Surgeries: Yes Other/Comment: right ear surgery. right and left foot surgery - ANESTHESIA Hx Anesthesia: Yes Hx Anesthesia Reactions: No Hx Malignant Hyperthermia: No Meds Allergies/Adverse Reactions: Allergies Allergy/AdvReac Type Severity Reaction Status Date / Time NSAIDS (Non-Steroidal Allergy RASH Verified 07/14/18 21:39 Anti-Inflamma - Medications Medications: Current Medications Acetaminophen/Codeine Phosphate (Tylenol/Codeine 300 Mg/30 Mg) 1 tab PO Q6 PRN PRN Reason: Pain, severe (8-10) Enoxaparin Sodium (Lovenox) 40 mg SC DAILY [facility] PRN Reason: Protocol Last Admin: 07/15/18 09:14 Dose: Not Given Vancomycin HCl 1 gm/ Sodium (Chloride) 250 mls @ 166.667 mls/hr IVPB Q12 YARY PRN Reason: Protocol Piperacillin Sod/Tazobactam (Sod 3.375 gm/ Sodium Chloride) 100 mls @ 100 mls/ hr IVPB Q6 YARY PRN Reason: Protocol Last Admin: 07/15/18 12:15 Dose: 100 mls/hr Insulin Detemir (Levemir) 28 units SC BID [facility] Last Admin: 07/15/18 09:13 Dose: Not Given Insulin Human Lispro (Humalog) 0 units SC ACHS YARY PRN Reason: Protocol Last Admin: 07/15/18 11:33 Dose: 8 u Morphine Sulfate (Morphine) 2 mg IVP Q6 PRN PRN Reason: Pain, severe (8-10) Last Admin: 07/15/18 12:14 Dose: 2 mg Physical Exam - Constitutional Appears: Non-toxic, Chronically Ill - Head Exam Head Exam: ATRAUMATIC, NORMAL INSPECTION, NORMOCEPHALIC - Eye Exam Eye Exam: PERRL. absent: Scleral icterus - ENT Exam ENT Exam: Mucous Membranes Dry - Neck Exam Neck exam: Negative for: Lymphadenopathy - Respiratory Exam Respiratory Exam: Decreased Breath Sounds, Clear to Auscultation Bilateral - Cardiovascular Exam Cardiovascular Exam: REGULAR RHYTHM, +S1, +S2 - GI/Abdominal Exam GI & Abdominal Exam: Diminished Bowel Sounds, Soft. absent: Tenderness - Rectal Exam Rectal Exam: Deferred - Exam Exam: NORMAL INSPECTION - Extremities Exam Additional comments: bilateral Charcot foot deformities superficial ulcer on plantar aspect 1st toe over met head on right Ulcer on plantar aspect 5th toe left foot over met head on left - Back Exam Back exam: absent: CVA tenderness (L), CVA tenderness (R) - Neurological Exam Neurological exam: Alert, CN II-XII Intact, Oriented x3, Reflexes Normal - Psychiatric Exam Psychiatric exam: Normal Mood - Skin Skin Exam: Dry, Intact Results - Vital Signs Recent Vital Signs: Last Vital Signs Temp 98.5 F 07/15/18 08:40 Pulse 86 07/15/18 08:40 Resp 20 07/15/18 08:40 BP 128/78 07/15/18 08:40 Pulse Ox 95 07/15/18 08:40 - Labs Result Diagrams: 07/15/18 00:21 07/15/18 00:21 Labs: Laboratory Results - last 24 hr 07/14/18 07/15/18 07/15/18 23:09 00:21 00:21 WBC 13.6 H RBC 4.29 L Hgb 13.1 Hct 38.0 MCV 88.7 MCH 30.5 MCHC 34.3 RDW 13.0 Plt Count 346 MPV 7.4 Neut % (Auto) 65.1 Lymph % (Auto) 25.4 Miner % (Auto) 4.2 Eos % (Auto) 3.4 Baso % (Auto) 1.9 Neut # (Auto) 8.9 H Lymph # (Auto) 3.5 Miner # (Auto) 0.6 Eos # (Auto) 0.5 Baso # (Auto) 0.3 H pO2 51 VBG pH 7.40 VBG pCO2 43 VBG HCO3 25.6 VBG Total CO2 27.9 VBG O2 Sat (Calc) 92.4 H VBG Base Excess 1.4 VBG Potassium 4.1 Sodium 132.0 136 Chloride 103.0 105 Glucose 328 H Lactate 1.0 FiO2 21.0 Potassium 4.0 Carbon Dioxide 26 Anion Gap 9 L BUN 20 Creatinine 0.9 Est GFR ( Amer) > 60 Est GFR (Non-Af Amer) > 60 POC Glucose (mg/dL) Random Glucose 314 H Calcium 9.5 Total Bilirubin 0.2 AST 17 ALT 27 Alkaline Phosphatase 122 Total Protein 6.9 Albumin 3.6 Globulin 3.3 Albumin/Globulin Ratio 1.1 Vitamin B12 TSH 3rd Generation Venous Blood Potassium 4.1 07/15/18 07/15/18 08:30 10:49 WBC RBC Hgb Hct MCV MCH MCHC RDW Plt Count MPV Neut % (Auto) Lymph % (Auto) Miner % (Auto) Eos % (Auto) Baso % (Auto) Neut # (Auto) Lymph # (Auto) Miner # (Auto) Eos # (Auto) Baso # (Auto) pO2 VBG pH VBG pCO2 VBG HCO3 VBG Total CO2 VBG O2 Sat (Calc) VBG Base Excess VBG Potassium Sodium Chloride Glucose Lactate FiO2 Potassium Carbon Dioxide Anion Gap BUN Creatinine Est GFR ( Amer) Est GFR (Non-Af Amer) POC Glucose (mg/dL) 386 H Random Glucose Calcium Total Bilirubin AST ALT Alkaline Phosphatase Total Protein Albumin Globulin Albumin/Globulin Ratio Vitamin B12 336 TSH 3rd Generation 1.09 Venous Blood Potassium Assessment & Plan (1) Cellulitis Status: Acute (2) Diabetic foot ulcer Status: Acute - Assessment and Plan (Free Text) Assessment: recc eval for PVD- arterial dopplers and vascuklar eval consider MRI and or bone scan to r/o OM left foot agree with empiric IV antibiotics for now
[2018-07-15] MEDS ORDERED: Povidone Iodine Topical 10% Sol ONE (14:28)
--- NOTE | 2018-07-15 14:51 | CP.PCM.PN ---
Addendum entered and electronically signed by Braden Christianson DPM 07/17/18 14:43: Debridement of nonviable tissue including undermining tissue excised with a scissor and a pickup to the level of dermis/subcutaneous junction at the lateral plantar sub met 5 of the left foot until healthier wound bed and vital tissue appeared. Original Note: Subjective - Date & Time of Evaluation Date of Evaluation: 07/15/18 Time of Evaluation: 13:00 - Subjective Subjective: Podiatry Progress Note- Dr. Eid 42M with PMHx of DM with neuropathy, HTN, arthritis, bipolar Disorder, depression, anxiety, and schizophrenia seen and evaluated at bedside for worsening bilateral foot ulcerations R>L, and L 5th metatarsal (+) OM. Patient is seen resting comfortably in bed, in NAD, and AA0x3. Reports to be in a better mood during visitation. Dressing clean, dry and intact without strikethrough. Patient denies nausea, fever, shortness of breath, chest pains or chills. Objective - Vital Signs/Intake and Output Vital Signs (last 24 hours): Temp Pulse Resp BP Pulse Ox 98.5 F 86 20 128/78 95 07/15/18 08:40 07/15/18 08:40 07/15/18 08:40 07/15/18 08:40 07/15/18 08:40 - Medications Medications: Current Medications Acetaminophen/Codeine Phosphate (Tylenol/Codeine 300 Mg/30 Mg) 1 tab PO Q6 PRN PRN Reason: Pain, severe (8-10) Enoxaparin Sodium (Lovenox) 40 mg SC DAILY YARY PRN Reason: Protocol Last Admin: 07/15/18 09:14 Dose: Not Given Vancomycin HCl 1 gm/ Sodium (Chloride) 250 mls @ 166.667 mls/hr IVPB Q12 YARY PRN Reason: Protocol Piperacillin Sod/Tazobactam (Sod 3.375 gm/ Sodium Chloride) 100 mls @ 100 mls/hr IVPB Q6 YARY PRN Reason: Protocol Last Admin: 07/15/18 12:15 Dose: 100 mls/hr Insulin Detemir (Levemir) 28 units SC BID YARY Last Admin: 07/15/18 09:13 Dose: Not Given Insulin Human Lispro (Humalog) 0 units SC ACHS YARY PRN Reason: Protocol Last Admin: 07/15/18 11:33 Dose: 8 u Morphine Sulfate (Morphine) 2 mg IVP Q6 PRN PRN Reason: Pain, severe (8-10) Last Admin: 07/15/18 12:14 Dose: 2 mg - Labs Labs: 07/15/18 00:21 07/15/18 00:21 - Constitutional Appears: Well, Non-toxic, No Acute Distress - Extremities Exam Extremities Exam: absent: Calf Tenderness Additional comments: Bilateral lower extremity focused exam: Vasc: DP/PT 1/4, Cap refill < 3 sec in all digits, temperature gradient warm to warm from proximal to distal. Pedal hair present. Minimal non pitting edema in the left foot and ankle area. Neuro: Gross sensation intact, protective sensation diminished Derm: Right: Circular ulceration measuring approximately 3 cm in diameter x .2 cm at sub met 1. Periwound mildly hyperkeratotic, malodor noted, minimal serous purulent, positive undermining, No tracking or probing to bone, Base is granular 100%. Diffuse dryness of the skin of the plantar aspect of the foot. Erythema noted in the javed-wound area. Left: Ulceration noted to the lateral aspect of forefoot at sub metatarsal 5 measuring approximately 3 cm x 3 cm x .2, erythema, with undermining noted. No tunneling, no active drainage, no probe to bone; large portion of periwound macerated with nonviable undermining and skin lifted from ulceration with likely larger ulceration noted, (+) mild odor, no fluctuatance or abscess appreciated, no streaking Ortho: cavus foot type; pain with palpation to skin surrounding ulcerations, AROM 1-5 present - Neurological Exam Neurological Exam: Alert, Awake - Psychiatric Exam Psychiatric exam: Normal Affect, Normal Mood Assessment and Plan - Assessment and Plan (Free Text) Assessment: 42M with PMHx of DM with neuropathy, HTN, arthritis, bipolar Disorder, depression, anxiety, and schizophrenia with worsening bilateral foot ulcerations R>L, and L 5th metatarsal (+) OM Plan: Patient seen and examined Discussed plan in detail with attending Dr. Eid Labs, vitals, chart reviewed, afebrile, leukocytosis WBC=13.6 X-rays reviewed: L foot X-ray Impression: Postoperative a section of the head of the 5th metatarsal. Associated surrounding soft tissue swelling and gas. Sclerotic changes of the 5th metatarsal shaft suspicious for chronic osteomyelitis. R foot X-ray - no fracture R Wound culture - Morg Morganii Ss Morganii, S. Aureus Wound culture taken of left foot no 07/14/18- pending ID consulted- recommendations appreciated c/w Zosyn and Vanco ESR= 81 MRI foot bilaterally- pending Bilateral foot cleansed with copious saline solution Dressed right foot with betadine soaked gauze, dsd, and kerlix With the use of scissors and pickup, nonviable undermining tissue excised and removed surrounding left foot lateral ulceration, exposing larger ulceration underneath. Patient tolerated well. Did not appreciate any gas or drainage with physical examination. Dressed left foot with betadine soaked gauze, dsd, and kerlix Patient will likely go to the OR Monday 12-12:30 for debridement of left foot ulceration of all nonviable soft tissue and bone. Will make arrangements with OR tomorrow Spoke to patient about surgery, including procedure, alternatives, benefits, and complications.Patient understands and agrees to proceed with surgery. All questions/concerns addressed Medical optimization requested, thank you Patient to WBAT to the heels in surgical shoe bilaterally Please dispense surgical shoes bilaterally
[2018-07-15 16:51] VITALS: BP 118/76; PULSE 80; TEMP 98.3; O2SAT 96
--- NOTE | 2018-07-15 18:28 | HP ---
CHIEF COMPLAINT: Left foot pain. 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 The patient had this having been going for few days, which got worse and the patient also noticed purulent swelling on the foot, so the patient came back. REVIEW OF SYSTEMS: Positive for left foot pain. Review of systems otherwise is negative for headache, dizziness, syncope, loss of consciousness, chest pain, shortness of breath, nausea, vomiting, diarrhea, constipation, or any other symptoms. Review of systems of all other organ systems are unremarkable. PAST MEDICAL HISTORY: Significant for diabetes, hypertension, obesity, psychiatric disorder, depression, schizophrenia, bipolar disorder, arthritis. PAST SURGICAL HISTORY: Remarkable for amputation of the left fifth toe. PERSONAL HISTORY: The patient is currently nonsmoker, nondrinker. No substance abuse. MEDICATIONS: The patient is on multiple medications, which is as per reconciliation sheet, which were reviewed and ordered. FAMILY HISTORY: Noncontributory. PHYSICAL EXAMINATION: GENERAL: Well-built, well-nourished, overweight 42-year-old male, in no acute distress. VITAL SIGNS: Temperature 98.5, pulse 91, respirations 17, and blood pressure 142/81. HEENT: Pupils reacting to light. No JVD. No thyromegaly. No lymphadenopathy. No nystagmus. Normocephalic, atraumatic skull. HEART: S1 and S2. Normal and regular. No significant murmur, gallops, or rubs are heard. LUNGS: Good bilateral air exchange. No rales or rhonchi. ABDOMEN: Soft and nontender. No organomegaly. No fluid. Bowel sounds are plus and normal. EXTREMITIES: No edema. No calf swelling. No tenderness. No acute of the foot. The patient has status post podiatry treatment for large abscess. The patient has 3 x 3 x 0.2 cm edema. No tunneling or discharge. The patient also has foot ulcer on the right foot, but no sign of acute ischemia. FRUIT DUMPER: Exam is essentially unchanged and there is no sign of any acute gross focal, motor, or sensory neurological deficits. DIAGNOSTIC DATA: Available diagnostic data reviewed. WBC 13.2, hemoglobin 13.1, hematocrit 38, platelets 246. Lactic acid level is 1. Sodium 136, potassium 4, chloride 95, bicarb 26, BUN 20, creatinine 0.9. Sugar is 314. SMA-12 otherwise is unremarkable. ADMITTING IMPRESSION: Cellulitis of left foot, questionable osteomyelitis, type 2 diabetes with hyperglycemia, hypertension, and obesity with body mass index of 33.9. PLAN: As ordered. Case and plan discussed with the patient. Brian Rucker MD
[2018-07-16] MEDS ORDERED: Piperacillin/Tazobact 3.375 GM in Sodium Chloride 0.9% 100 ML IVPB SCH
== END 2018-07-15 21:00 | disposition left against medical advice (07) | DRG 263 ==
LOC: H.ER 21:35 → H.ERHOLD 07-15 05:55 → H.MEDSURG1 07-15 06:46
PROVIDERS: ADMIT Internal Medicine; ATTEND Internal Medicine
PROC: 0JBR0ZZ Excision of Left Foot Subcutaneous Tissue and Fascia, Open Approach (ICD-10-PCS; principal; 2018-07-15)
DX: L03.116 Cellulitis of left lower limb (principal); E11.621 Type 2 diabetes mellitus with foot ulcer; E11.40 Type 2 diabetes mellitus with diabetic neuropathy, unspecified; F20.9 Schizophrenia, unspecified; L97.519 Non-pressure chronic ulcer of other part of right foot with unspecified severity; L97.529 Non-pressure chronic ulcer of other part of left foot with unspecified severity; E11.65 Type 2 diabetes mellitus with hyperglycemia; E11.69 Type 2 diabetes mellitus with other specified complication; I10 Essential (primary) hypertension; F17.210 Nicotine dependence, cigarettes, uncomplicated; F31.9 Bipolar disorder, unspecified; E66.9 Obesity, unspecified; F41.9 Anxiety disorder, unspecified; Z68.33 Body mass index [BMI] 33.0-33.9, adult; M19.90 Unspecified osteoarthritis, unspecified site; M86.672 Other chronic osteomyelitis, left ankle and foot; B95.62 Methicillin resistant Staphylococcus aureus infection as the cause of diseases classified elsewhere; Z89.422 Acquired absence of other left toe(s)

== ENCOUNTER 2018-07-30 02:40 | Emergency (ER) | payer MEDICAID ==
[2018-07-30 02:56] VITALS: BMI 32.5
[2018-07-30 02:59] VITALS: BP 125/74; PULSE 97; RESP 18; TEMP 98.6; O2SAT 98
--- NOTE | 2018-07-30 05:12 | ED PDOC ---
Lower Extremity Pain/Injury Time Seen by Provider: 07/30/18 04:13 Chief Complaint (Nursing): Lower Extremity Problem/Injury Chief Complaint (Provider): Bilateral foot ulcers History Per: Patient History/Exam Limitations: no limitations Onset/Duration Of Symptoms: Days Current Symptoms Are (Timing): Still Present Additional Complaint(s): 42 yo male with history of DM presents for evaluation of bilateral foot ulcers. Pt states he has had them for a long time but the pain the last day is worse. Pt denies fever/chills. Pt denies drainage. [place] [facility] [place]. Past Medical History Reviewed: Historical Data, Nursing Documentation, Vital Signs Vital Signs: Last Vital Signs Temp 98.6 F 07/30/18 02:56 Pulse 97 H 07/30/18 02:56 Resp 18 07/30/18 02:56 BP 125/74 07/30/18 02:56 Pulse Ox 98 07/30/18 02:56 - Medical History PMH: Anxiety, Arthritis (backs and LE), Bipolar Disorder, Depression, Diabetes, HTN, Schizophrenia (schizoaffective disorder) Denies: Chronic Kidney Disease - Surgical History Other surgeries: Toe amputation - Family History Family History: States: Unknown Family Hx - Living Arrangements Living Arrangements: With Family - Social History Current smoker - smoking cessation education provided: No - Immunization History Hx Tetanus Toxoid Vaccination: No Hx Influenza Vaccination: No Hx Pneumococcal Vaccination: No - Home Medications Home Medications: Ambulatory Orders Medication Instructions Recorded Insulin Aspart [Novolog] 28 unit SC BID 04/25/17 Insulin Glargine,Hum.rec.anlog 28 unit SQ BID 07/14/18 [Lantus] Ciprofloxacin HCl [Cipro] 500 mg PO BID #14 tablet 07/16/18 - Allergies Allergies/Adverse Reactions: Allergies Allergy/AdvReac Type Severity Reaction Status Date / Time NSAIDS (Non-Steroidal Allergy RASH Verified 07/30/18 02:56 Anti-Inflamma Review of Systems ROS Statement: Except As Marked, All Systems Reviewed And Found Negative Constitutional: Negative for: Fever, Chills Cardiovascular: Negative for: Chest Pain, Palpitations Gastrointestinal: Negative for: Nausea, Vomiting, Abdominal Pain Skin: Positive for: Other Physical Exam - Reviewed Nursing Documentation Reviewed: Yes Vital Signs Reviewed: Yes - Physical Exam Appears: Positive for: Well, Non-toxic, No Acute Distress Head Exam: Positive for: ATRAUMATIC, NORMAL INSPECTION, NORMOCEPHALIC Skin: Positive for: Warm. Negative for: Normal Color ((+) ulcers on dorsal leet: Left lateral and right medial foot ) Eye Exam: Positive for: Normal appearance ENT: Positive for: Normal ENT Inspection Neck: Positive for: Normal, Painless ROM Cardiovascular/Chest: Positive for: Regular Rate, Rhythm Respiratory: Positive for: Normal Breath Sounds. Negative for: Accessory Muscle Use, Respiratory Distress Back: Positive for: Normal Inspection Extremity: Positive for: Normal ROM. Negative for: Tenderness, Deformity, Swelling Neurologic/Psych: Positive for: Alert, Oriented, Gait. Negative for: Facial Droop - ECG O2 Sat by Pulse Oximetry: 98 Pulse Ox Interpretation: Normal Medical Decision Making Medical Decision Making: Labs and XR pending. Disposition - Clinical Impression Clinical Impression: Diabetic foot ulcer - Patient ED Disposition Is Patient to be Admitted: Transfer of Care Counseled Patient/Family Regarding: Diagnosis, Need For Followup - Disposition Disposition: Routine/Home Disposition Time: 05:17 Condition: GOOD Instructions: Diabetic Foot Ulcer (DC)
[2018-07-30 05:54] LABS: VENOUS BLOOD GAS BASE EXCESS 1.4 mmol/L (0.0-2.0); VENOUS BLOOD GAS PCO2 52 mmHg (40-60); VENOUS BLOOD GAS PO2 28 mm/Hg (30-55); VENOUS BLOOD PH 7.34 (7.32-7.43)
[2018-07-30 07:15] LABS: BASO # 0.1 K/uL (0.0-0.2); BASO % 0.8 % (0.0-2.0); EOS # 0.5 K/uL (0.0-0.7); EOS % 5.1 % (0.0-4.0); HEMOGLOBIN 13.4 g/dL (12.0-18.0); LYMPH # 3.3 K/uL (1.0-4.3); LYMPH % 31.6 % (20.0-40.0); MEAN CELL VOLUME 88.6 fl (80.0-94.0); MEAN CORPUSCULAR HGB CONC 33.9 g/dL (33.0-37.0); MEAN PLATELET VOLUME 8.2 fl (7.2-11.7); MONO # 0.5 K/uL (0.0-0.8); MONO % 5.2 % (0.0-10.0); NEUT % 57.3 % (50.0-75.0); RBC 4.46 Mil/uL (4.40-5.90); WHITE BLOOD COUNT 10.5 K/uL (4.8-10.8)
[2018-07-30 07:26] LABS: ALBUMIN 3.7 g/dL (3.5-5.0); ALT/SGPT 22 U/L (21-72); AST/SGOT 18 U/L (17-59); BLOOD UREA NITROGEN 23 mg/dl (9-20); CALCIUM 9.5 mg/dL (8.4-10.2); GFR NON-AFRICAN AMERICAN > 60
--- NOTE | 2018-07-30 07:31 | ED PDOC ---
- Laboratory Results Result Diagrams: 07/30/18 05:34 07/30/18 05:34 - ECG O2 Sat by Pulse Oximetry: 98 (RA) Pulse Ox Interpretation: Normal Medical Decision Making Medical Decision Makin Received endorsement from Dr. Fitzgerald, pending podiatry consultation. [id number] Podiatry resident attempted to evaluate patient, patient refused. Refused to sign AMA paperwork. Scribe Attestation: Documented by Shannon Vitale, acting as a scribe for Martine Starr MD. Provider Scribe Attestation: All medical record entries made by the Scribe were at my direction and personally dictated by me. I have reviewed the chart and agree that the record accurately reflects my personal performance of the history, physical exam, medical decision making, and the department course for this patient. I have also personally directed, reviewed, and agree with the discharge instructions and disposition. Disposition - Clinical Impression Clinical Impression: Diabetic foot ulcer - POA Present On Arrival: Poor Glycemic Control - Disposition Disposition: Left W/O Treatment Disposition Time: 09:32 Condition: UNKNOWN Instructions: Diabetic Foot Ulcer (DC)
--- NOTE | 2018-07-30 08:15 | RAD ---
Date of service: 07/30/2018 PROCEDURE: Bilateral Feet Radiographs. HISTORY: ulcers, bilateral dorsal foot COMPARISON: Right foot radiographs 07/14/2018. Left foot radiographs 07/14/2018 as well. FINDINGS: BONES: There is no acute fracture or dislocation identified bilaterally. No erosive changes are identified involving the right foot with chronic hammertoe deformity seen throughout the right foot once again. Prior 5th digit amputation reiterated as well as at the distal segment left 5th metatarsal bone once again. There is persistent hyperdensity related to the left 5th metatarsal bone potentially reflecting chronic osteomyelitis. No acute periosteal changes however.. JOINTS: Diffuse hammertoe deformities reiterated bilaterally. No subluxation or dislocation appreciated. SOFT TISSUES: Right Foot: Normal. Left Foot: Emphysematous changes with edema are improved at the plantar soft tissues deep and lateral to the left distal 5th metatarsal bone with no interval changes seen related to the distal 5th metatarsal bone left foot. Pattern may reflect interval improvement of ulceration. Clinically correlate further. Plantar forefoot ulcer is seen at the distal right foot but only in the lateral projection. OTHER FINDINGS: None. IMPRESSION: Cellulitis with ulcer is improved at the distal lateral plantar soft tissues of the left foot sclerotic changes again seen related to the 5th metatarsal bone potentially reflecting osteomyelitis. Follow-up MRI is advised for added characterization. No suspicious findings at the right foot although bilateral hammertoe deformities are seen diffusely. Prior left 5th digit and distal transmetatarsal amputation reiterated. Right plantar forefoot soft tissue ulcer identified. No definite pattern to suggest osteomyelitis right foot.
--- NOTE | 2018-07-30 12:00 | CP.PCM.CON ---
History of Present Illness - History of Present Illness History of Present Illness: Podiatry Consult Note- Dr. Schumacher 42M with PMH of DM with neuropathy, HTN, arthritis, bipolar Disorder, depression, anxiety, and schizophrenia presents to the ED for worsening bilateral foot ulcerations L>R. Patient reports that he was in the hospital 2 weeks ago and he got discharged on PO Abx. Patient states that he was ok but few days ago his left foot started to become painful. Patient states that the pain is 7/10. Patient states that the pain is more when he steps on his foot. Patient states that he has tingling and numbness in his feet due to his neurpathy. Patient denies any other pedal complaint. Patient denies any recent F/N/V/C or SOB. Patient expressed very bad and impulsive behaviour in the ED and he cursed the podiatry doctor and the ED staff. 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 Alban Carlisle DPM from [facility]), multiple ear surgery Allergies: NSAID (swelling) Social Hx: Smoker 1ppd 15 years, denies drinking EtOH or illicit drug use Review of Systems - Review of Systems Review of Systems: As per HPI Past Patient History - Infectious Disease Hx of Infectious Diseases: None - Past Medical History & Family History Past Medical History?: Yes - Past Social History Smoking Status: Heavy Smoker > 10 Cigarettes Daily - CARDIAC Hx Hypertension: Yes - PULMONARY Hx Respiratory Disorders: No - NEUROLOGICAL Hx Neurological Disorder: No - HEENT Hx HEENT Problems: No - RENAL Hx Chronic Kidney Disease: No - ENDOCRINE/METABOLIC Hx Diabetes Mellitus Type 2: Yes - HEMATOLOGICAL/ONCOLOGICAL Hx Blood Disorders: No - INTEGUMENTARY Hx Dermatological Problems: No - MUSCULOSKELETAL/RHEUMATOLOGICAL Hx Arthritis: Yes (backs and LE) - GASTROINTESTINAL Hx Gastrointestinal Disorders: No - GENITOURINARY/GYNECOLOGICAL Hx Genitourinary Disorders: No - PSYCHIATRIC Hx Anxiety: Yes Hx Bipolar Disorder: Yes Hx Depression: Yes Hx Schizophrenia: Yes (schizoaffective disorder) - SURGICAL HISTORY Hx Surgeries: Yes Other/Comment: right ear surgery. right and left foot surgery - ANESTHESIA Hx Anesthesia: Yes Hx Anesthesia Reactions: No Hx Malignant Hyperthermia: No Meds Allergies/Adverse Reactions: Allergies Allergy/AdvReac Type Severity Reaction Status Date / Time NSAIDS (Non-Steroidal Allergy RASH Verified 07/30/18 02:56 Anti-Inflamma Physical Exam - Constitutional Appears: Well, Non-toxic, No Acute Distress - Head Exam Head Exam: ATRAUMATIC, NORMOCEPHALIC - Extremities Exam Additional comments: Bilateral lower extremity focused exam: Vasc: DP/PT 2/4, Cap refill < 3 sec in all digits, temperature gradient warm to warm from proximal to distal b/l. Pedal hair present. Minimal non pitting edema in the left foot and ankle area. Neuro: Gross sensation intact, protective sensation diminished b/l. Derm: Right: Circular ulceration measuring approximately 4.0 cm in diameter x 0.3 cm. Periwound area is hyperkeratotic, malodor noted, minimal sero-purulent drainage, positive undermining, No tracking or probing to bone, Base is granular, fibrous 70%:30%. Diffuse dryness of the skin of the plantar aspect of the foot. Erythema noted in the javed-wound area. Left: Ulceration noted to the lateral aspect of forefoot at sub metatarsal 5 measuring approximately 4 cm x 3 cm x 0.2 cm, erythema, with undermining noted. No tunneling, no active drainage, no probe to bone; large portion of periwound macerated with nonviable undermining and skin lifted from ulceration with likely larger ulceration noted, (+) mild malodor, no fluctanance or abscess appreciated, no streaking. Base is necrotic fibrotic 70%:30% MSK: B/L cavus foot type; pain with palpation to skin surrounding ulcerations b/l, Ankle ROM WNL b/l. Muscle power intact 5/5 b/l. - Neurological Exam Neurological exam: Alert, Oriented x3 - Psychiatric Exam Psychiatric exam: Anxious Results - Vital Signs Recent Vital Signs: Last Vital Signs Temp 98.6 F 07/30/18 02:56 Pulse 97 H 07/30/18 02:56 Resp 18 07/30/18 02:56 BP 125/74 07/30/18 02:56 Pulse Ox 98 07/30/18 09:33 - Labs Result Diagrams: 07/30/18 05:34 07/30/18 05:34 Labs: Laboratory Results - last 24 hr 07/30/18 07/30/18 07/30/18 05:34 05:34 05:52 WBC 10.5 RBC 4.46 Hgb 13.4 Hct 39.5 MCV 88.6 MCH 30.0 MCHC 33.9 RDW 13.0 Plt Count 361 MPV 8.2 Neut % (Auto) 57.3 Lymph % (Auto) 31.6 [place] % (Auto) 5.2 Eos % (Auto) 5.1 H Baso % (Auto) 0.8 Neut # (Auto) 6.0 Lymph # (Auto) 3.3 [place] # (Auto) 0.5 Eos # (Auto) 0.5 Baso # (Auto) 0.1 pO2 28 L VBG pH 7.34 VBG pCO2 52 VBG HCO3 24.7 VBG Total CO2 29.7 H VBG O2 Sat (Calc) 61.1 VBG Base Excess 1.4 VBG Potassium 4.0 Glucose 298 H Lactate 0.9 FiO2 21.0 Sodium 139 136.0 Potassium 4.2 Chloride 102 102.0 Carbon Dioxide 29 Anion Gap 12 BUN 23 H Creatinine 1.0 Est GFR ( Amer) > 60 Est GFR (Non-Af Amer) > 60 Random Glucose 281 H Calcium 9.5 Total Bilirubin 0.2 AST 18 ALT 22 Alkaline Phosphatase 126 Total Protein 7.3 Albumin 3.7 Globulin 3.6 Albumin/Globulin Ratio 1.0 Venous Blood Potassium 4.0 Assessment & Plan - Assessment and Plan (Free Text) Assessment: 42 y/O M patient seen and evaluated in the ED for B/L foot ulcerations Plan: Patient seen and examined Discussed plan in detail with attending Dr. Schumacher Labs, vitals, chart reviewed, afebrile, leukocytosis WBC 10.5 X-rays reviewed: L foot X-ray Impression: Sclerotic changes of the 5th metatarsal shaft suspicious for chronic osteomyelitis. R foot X-ray - no fracture, No signs of osteomyelitis. Patient didn't allow the medical staff to provide the medical service for him (Wound Cx, IV Abx) Patient insulted me while examining him. Patient left the hospital AMA without signing any paper after insulting the medical staff. Thank you for consulting podiatry service. - Date & Time Date: 07/30/18 Time: 11:46
== END 2018-07-30 09:24 | disposition left against medical advice (07) ==
LOC: H.ER 02:40
DX: E11.621 Type 2 diabetes mellitus with foot ulcer (principal); F31.9 Bipolar disorder, unspecified; I10 Essential (primary) hypertension; M20.41 Other hammer toe(s) (acquired), right foot

== ENCOUNTER 2018-08-14 03:48 | Observation (INO) | payer MEDICAID ==
[2018-08-14 03:49] VITALS: BMI 32.5
[2018-08-14 03:55] VITALS: BP 119/69; PULSE 100; RESP 16; TEMP 98.8; O2SAT 97
[2018-08-14] MEDS ORDERED: Sodium Chloride 0.9% 1,000 ML IV STA (04:07)
--- NOTE | 2018-08-14 04:14 | ED PDOC ---
Lower Extremity Pain/Injury Time Seen by Provider: 08/14/18 04:12 Chief Complaint (Nursing): Lower Extremity Problem/Injury Chief Complaint (Provider): BILATERAL FOOT WOUNDS History Per: Patient (42 Y/O MALE H/O IDDM NONCOMPLIANT ON MEDICATIONS SINCE 08/01 DUE TO EVICTION IS HERE FOR PERSISTENT LOWER LEG PAIN. DENIES ANY FEVERS/CHILLS. PATIENT WAS SEEN EARLIER THIS MONTH AND EVALUATED BY PODIATRY BUT REFUSED ADMISSION OR IV ANTIBIOTICS WHEN NOT GIVEN PAIN MEDICATIONS.) Past Medical History Reviewed: Historical Data, Nursing Documentation, Vital Signs Vital Signs: Last Vital Signs Temp 98.8 F 08/14/18 03:53 Pulse 100 H 08/14/18 03:53 Resp 16 08/14/18 03:53 BP 119/69 08/14/18 03:53 Pulse Ox 97 08/14/18 03:53 - Medical History PMH: Anxiety, Arthritis (backs and LE), Bipolar Disorder, Depression, Diabetes, HTN, Schizophrenia (schizoaffective disorder) Denies: Chronic Kidney Disease - Family History Family History: States: Unknown Family Hx - Immunization History Hx Tetanus Toxoid Vaccination: No Hx Influenza Vaccination: No Hx Pneumococcal Vaccination: No - Home Medications Home Medications: Ambulatory Orders Medication Instructions Recorded Insulin Aspart [Novolog] 28 unit SC BID 04/25/17 Insulin Glargine,Hum.rec.anlog 28 unit SQ BID 07/14/18 [Lantus] Ciprofloxacin HCl [Cipro] 500 mg PO BID #14 tablet 07/16/18 - Allergies Allergies/Adverse Reactions: Allergies Allergy/AdvReac Type Severity Reaction Status Date / Time NSAIDS (Non-Steroidal Allergy RASH Verified 07/30/18 02:56 Anti-Inflamma Review of Systems ROS Statement: Except As Marked, All Systems Reviewed And Found Negative Physical Exam - Reviewed Nursing Documentation Reviewed: Yes Vital Signs Reviewed: Yes - Physical Exam Appears: Positive for: Well, Non-toxic, No Acute Distress Head Exam: Positive for: ATRAUMATIC, NORMAL INSPECTION, NORMOCEPHALIC Skin: Positive for: Normal Color, Warm, DRY Eye Exam: Positive for: EOMI, Normal appearance, PERRL ENT: Positive for: Normal ENT Inspection Neck: Positive for: Normal, Painless ROM Cardiovascular/Chest: Positive for: Regular Rate, Rhythm Respiratory: Positive for: CNT, Normal Breath Sounds Gastrointestinal/Abdominal: Positive for: Normal Exam, Soft Back: Positive for: Normal Inspection Extremity: Positive for: Normal ROM, Other (WOUND#1 RIGHT FOOT 2 CM ULCER PLANTAR SURFACE WOUND #2 RIGHT FOOT FOURTH AND FIFTH DIGITS WITH MILD ERYTHEMA AND SMALLER SKIN ULCER; WOUND #3 FOUR CM ULCER PLANTAR SURFACE LEFT FOOT.) Neurologic/Psych: Positive for: Alert, Oriented - Laboratory Results Result Diagrams: 08/14/18 05:01 08/14/18 05:01 - ECG O2 Sat by Pulse Oximetry: 97 - Progress ED Course And Treament: BC X 2 D/W PODIATRY RESIDENT Disposition - Clinical Impression Clinical Impression: Wound of foot, Hyperglycemia - Patient ED Disposition Is Patient to be Admitted: Transfer of Care - Disposition Disposition: Transfer of Care Disposition Time: 05:59 Condition: FAIR Patient Signed Over To: Ana Luis Handoff Comments: PODIATRY CONSULT
[2018-08-14 05:00] LABS: VENOUS BLOOD GAS BASE EXCESS 2.7 mmol/L (0.0-2.0); VENOUS BLOOD GAS PCO2 44 mmHg (40-60); VENOUS BLOOD GAS PO2 43 mm/Hg (30-55); VENOUS BLOOD PH 7.41 (7.32-7.43)
[2018-08-14 05:04] LABS: BASO # 0.1 K/uL (0.0-0.2); BASO % 0.7 % (0.0-2.0); EOS # 0.5 K/uL (0.0-0.7); EOS % 4.4 % (0.0-4.0); HEMOGLOBIN 11.9 g/dL (12.0-18.0); LYMPH # 3.4 K/uL (1.0-4.3); LYMPH % 28.3 % (20.0-40.0); MEAN CELL VOLUME 87.5 fl (80.0-94.0); MEAN CORPUSCULAR HEMOGLOBIN 30.1 pg (27.0-31.0); MEAN CORPUSCULAR HGB CONC 34.4 g/dL (33.0-37.0); MEAN PLATELET VOLUME 7.5 fl (7.2-11.7); MONO # 0.7 K/uL (0.0-0.8); MONO % 5.7 % (0.0-10.0); NEUT # 7.3 K/uL (1.8-7.0); NEUT % 60.9 % (50.0-75.0); RBC 3.96 Mil/uL (4.40-5.90); RED CELL DISTRIBUTION WIDTH 12.5 % (11.5-14.5)
[2018-08-14 05:17] LABS: ALBUMIN 3.5 g/dL (3.5-5.0); BLOOD UREA NITROGEN 22 mg/dl (9-20); CALCIUM 9.3 mg/dL (8.4-10.2); GFR NON-AFRICAN AMERICAN > 60
[2018-08-14 05:18] LABS: ALT/SGPT 19 U/L (21-72); AST/SGOT 22 U/L (17-59)
[2018-08-14 06:02] LABS: SPERM URINE RARE /hpf; URINE BILIRUBIN NEGATIVE (NEGATIVE); URINE BLOOD SMALL (NEGATIVE); URINE CLARITY CLEAR (Clear); URINE COLOR YELLOW (YELLOW); URINE GLUCOSE (UA) >=500 mg/dL (Normal); URINE LEUKOCYTE ESTERASE NEG Leu/uL (Negative); URINE PROTEIN 100 mg/dL (NEGATIVE); URINE UROBILINOGEN 0.2-1.0 mg/dL (0.2-1.0)
--- NOTE | 2018-08-14 06:11 | ED PDOC ---
- Laboratory Results Result Diagrams: 08/14/18 05:01 08/14/18 05:01 - ECG O2 Sat by Pulse Oximetry: 97 Medical Decision Making Medical Decision Makin -patient signed out to Ana Luis MD pending podiatry evaluation and repeat evaluation of glucose Disposition - Clinical Impression Clinical Impression: Wound of foot, Hyperglycemia - POA Present On Arrival: None - Disposition Disposition: Transfer of Care Disposition Time: 06:21 Condition: FAIR Patient Signed Over To: Ana Luis Handoff Comments: PENDING PODIATRY EVAL. PENDING REPEAT ACCUCHECK
[2018-08-14] MEDS ORDERED: Vancomycin 1 g Inj ONE (06:14)
[2018-08-14] MEDS ORDERED: Insulin Regular 100 units/ml IVP ONE (06:20)
[2018-08-14] MEDS ORDERED: Piperacillin/Tazobact 4.5 GM in Sodium Chloride 0.9% 100 ML IVPB STA (07:19)
--- NOTE | 2018-08-14 07:49 | CP.PCM.CON ---
History of Present Illness - History of Present Illness History of Present Illness: Podiatry Consult Note: Dr. Jimenez 42 year old male with PMH of DM with neuropathy, HTN, arthritis, bipolar Disorder, depression, anxiety, and schizophrenia presents to the ED for worsening bilateral foot ulcerations L>R. Patient is not responding to the questions asked properly and verbally abusing the staff constantly. Patient was seen by podiatry approx 2 weaks ago in the ED and decided to leave AMA. Patient states that he was given oral abx but has not taken any of it because he does not care about his health. Reports that he cleans his wounds with water daily, denies of any dressing changes. Reports that his bilateral foot are painful and would like to get pain medication for it. Patient states that he has tingling and numbness in his feet due to his neuropathy. Patient denies any other pedal complaint. Patient denies any recent F/N/V/C or SOB. Patient denies of having a primary care doctor. Reports that he [place] [facility] [place] decided to come here instead. PMHx: DM with neuropathy, HTN, arthritis, bipolar Disorder, depression, anxiety, and schizophrenia PSHx: left 5th digit amputation (Dr. Alban Carlisle DPAsad [place] [facility] multiple ear surgery Allergies: NSAID (swelling) Social Hx: Smoker 1ppd 15 years, denies drinking EtOH or illicit drug use Review of Systems - Constitutional Constitutional: As Per HPI Past Patient History - Infectious Disease Hx of Infectious Diseases: None - Past Medical History & Family History Past Medical History?: Yes - Past Social History Smoking Status: Heavy Smoker > 10 Cigarettes Daily - CARDIAC Hx Hypertension: Yes - PULMONARY Hx Respiratory Disorders: No - NEUROLOGICAL Hx Neurological Disorder: No - HEENT Hx HEENT Problems: No - RENAL Hx Chronic Kidney Disease: No - ENDOCRINE/METABOLIC Hx Endocrine Disorders: Yes Hx Diabetes Mellitus Type 2: Yes - HEMATOLOGICAL/ONCOLOGICAL Hx Blood Disorders: No - INTEGUMENTARY Hx Dermatological Problems: No - MUSCULOSKELETAL/RHEUMATOLOGICAL Hx Arthritis: Yes (backs and LE) - GASTROINTESTINAL Hx Gastrointestinal Disorders: No - GENITOURINARY/GYNECOLOGICAL Hx Genitourinary Disorders: No - PSYCHIATRIC Hx Anxiety: Yes Hx Bipolar Disorder: Yes Hx Depression: Yes Hx Schizophrenia: Yes (schizoaffective disorder) - SURGICAL HISTORY Hx Surgeries: Yes Other/Comment: right ear surgery. right and left foot surgery - ANESTHESIA Hx Anesthesia: Yes Hx Anesthesia Reactions: No Hx Malignant Hyperthermia: No Meds Allergies/Adverse Reactions: Allergies Allergy/AdvReac Type Severity Reaction Status Date / Time NSAIDS (Non-Steroidal Allergy RASH Verified 07/30/18 02:56 Anti-Inflamma - Medications Medications: Current Medications Piperacillin Sod/Tazobactam (Sod 4.5 gm/ Sodium Chloride) 100 mls @ 100 mls/hr IVPB STAT STA; Protocol Stop: 08/14/18 08:18 Physical Exam - Constitutional Appears: Well, Non-toxic, No Acute Distress - Extremities Exam Additional comments: Bilateral lower extremity focused exam: Vasc: DP/PT 2/4, Cap refill < 3 sec in all digits, temperature gradient warm to warm from proximal to distal b/l. Pedal hair present. Minimal non pitting edema accompanied with erythema noted localized to b/l feet and ankle Derm: Right: Circular ulceration measuring approximately 4.0 cm in diameter x 0.3 cm. Periwound area is hyperkeratotic, minimal malodor noted, very minimal serous drainage, positive undermining, No tracking or probing to bone, Base is granular 85%, fibrous 15%. javed-wound hyperkeratosis noted, Diffuse dryness of the skin of the plantar aspect of the foot. Erythema noted in the javed-wound area. Left: Ulceration noted to the lateral aspect of forefoot at sub metatarsal 5 measuring approximately 6 cm x 3 cm x 0.2 cm, erythema, no undermining, No tunneling, no active drainage, no probe to bone; periwound mild maceration with hyperkeratosis noted at the edges, (+) mild malodor, no fluctanance or abscess appreciated, no active drainage, no streaking. base is mainly grannular 70% fibrotic 30%; Both wounds are suspicious for active infection Neuro: Gross sensation intact, protective sensation diminished b/l. MSK: B/L cavus foot type; minimal pain with palpation to skin surrounding ulcerations b/l, Ankle ROM WNL b/l. Muscle power intact 5/5 b/l. - Neurological Exam Neurological exam: Alert, Oriented x3 - Psychiatric Exam Psychiatric exam: Normal Affect, Normal Mood Results - Vital Signs Recent Vital Signs: Last Vital Signs Temp 98.8 F 08/14/18 03:53 Pulse 100 H 08/14/18 03:53 Resp 16 10/23/18 03:53 BP 119/69 08/14/18 03:53 Pulse Ox 97 08/14/18 06:22 - Labs Result Diagrams: 08/14/18 05:01 08/14/18 05:01 Labs: Laboratory Results - last 24 hr 08/14/18 08/14/18 08/14/18 04:05 04:57 05:01 WBC 12.0 H RBC 3.96 L Hgb 11.9 L Hct 34.6 L MCV 87.5 MCH 30.1 MCHC 34.4 RDW 12.5 Plt Count 386 MPV 7.5 Neut % (Auto) 60.9 Lymph % (Auto) 28.3 [place] % (Auto) 5.7 Eos % (Auto) 4.4 H Baso % (Auto) 0.7 Neut # (Auto) 7.3 H Lymph # (Auto) 3.4 [place] # (Auto) 0.7 Eos # (Auto) 0.5 Baso # (Auto) 0.1 pO2 43 VBG pH 7.41 VBG pCO2 44 VBG HCO3 26.5 VBG Total CO2 29.3 H VBG O2 Sat (Calc) 86.6 H VBG Base Excess 2.7 H VBG Potassium 4.0 Sodium 135.0 Chloride 103.0 Glucose 342 H Lactate 1.2 FiO2 21.0 Potassium Carbon Dioxide Anion Gap BUN Creatinine Est GFR ( Amer) Est GFR (Non-Af Amer) POC Glucose (mg/dL) 347 H Random Glucose Calcium Total Bilirubin AST ALT Alkaline Phosphatase Total Protein Albumin Globulin Albumin/Globulin Ratio Venous Blood Potassium 4.0 Urine Color Urine Clarity Urine pH Ur Specific [place] Urine Protein Urine Glucose (UA) Urine Ketones Urine Blood Urine Nitrate Urine Bilirubin Urine Urobilinogen Ur Leukocyte Esterase Urine RBC (Auto) Urine Microscopic WBC Urine Sperm (Auto) 08/14/18 08/14/18 08/14/18 05:01 05:48 06:09 WBC RBC Hgb Hct MCV MCH MCHC RDW Plt Count MPV Neut % (Auto) Lymph % (Auto) [place] % (Auto) Eos % (Auto) Baso % (Auto) Neut # (Auto) Lymph # (Auto) [place] # (Auto) Eos # (Auto) Baso # (Auto) pO2 VBG pH VBG pCO2 VBG HCO3 VBG Total CO2 VBG O2 Sat (Calc) VBG Base Excess VBG Potassium Sodium 138 Chloride 103 Glucose Lactate FiO2 Potassium 4.1 Carbon Dioxide 30 Anion Gap 9 L BUN 22 H Creatinine 0.9 Est GFR ( Amer) > 60 Est GFR (Non-Af Amer) > 60 POC Glucose (mg/dL) 303 H Random Glucose 343 H Calcium 9.3 Total Bilirubin 0.2 AST 22 ALT 19 L Alkaline Phosphatase 117 Total Protein 7.0 Albumin 3.5 Globulin 3.5 Albumin/Globulin Ratio 1.0 Venous Blood Potassium Urine Color Yellow Urine Clarity Clear Urine pH 6.0 Ur Specific [place] 1.018 Urine Protein 100 Urine Glucose (UA) >=500 Urine Ketones Negative Urine Blood Small Urine Nitrate Negative Urine Bilirubin Negative Urine Urobilinogen 0.2-1.0 Ur Leukocyte Esterase Neg Urine RBC (Auto) 3 Urine Microscopic WBC 1 Urine Sperm (Auto) Rare H Assessment & Plan - Assessment and Plan (Free Text) Assessment: 42 year old male with extensive PMHx was seen and evaluated in the ED for B/L foot ulcerations ([place] 2) Plan: Patient seen and examined Discussed plan in detail with attending Dr. Jimenez Labs, vitals, chart reviewed, afebrile, leukocytosis WBC 12.0; elevated blood glucose X-rays reviewed: L foot X-ray Impression: Sclerotic changes of the 5th metatarsal shaft suspicious for chronic osteomyelitis. R foot X-ray - no fracture, No signs of osteomyelitis. Wound cultures taken from bilateral feet - pending ID consult - recs appreciated Patient received Vanc/Zosyn while in the ED Wounds cleaned using saline and dressing applied using DSD Patient to be admitted under Hospitalist service - Expressed interest in leaving the hospital during examination; educated the importance of staying in the hospital for further care Thank you for the podiatry cosnult and allowing to take part in patient care Podiatry to follow patient while in-house - Date & Time Date: 08/14/18 Time: 08:03
--- NOTE | 2018-08-14 09:58 | RAD ---
Date of service: 08/14/2018 PROCEDURE: Bilateral Feet Radiographs. HISTORY: BILATERAL WOUNDS ON FEET COMPARISON: None. FINDINGS: BONES: Right Foot: Normal. No fracture. Left Foot: Amputation 5th digit distal aspect 5th metatarsal. No acute fracture. JOINTS: Right Foot: Flexion deformity 2nd through 5th digit. No evidence of arthritis. Left Foot: Flexion deformity 2nd through 4th digit. No evidence of arthritis. SOFT TISSUES: Right Foot: Normal. Left Foot: Normal. OTHER FINDINGS: None. IMPRESSION: Amputation left 5th digit at distal aspect 5th metatarsal. No other acute abnormality. No plain radiographic evidence of osteomyelitis.
--- NOTE | 2018-08-14 15:43 | CP.PCM.PN ---
Subjective - Date & Time of Evaluation Date of Evaluation: 08/13/18 Time of Evaluation: 15:40 - Subjective Subjective: I D NOTE MEDICAL REVIEWED,PREVIOUS CULTURES NOTED AWAIT FOLLOWUP CULTURES BUT WILL START ANTIBIOTICS BASED ON CUTURES SHOWING MRSA AND PROVIDENCIA RETTGERI c VANCOMYCIN & MAXIPEME Objective - Vital Signs/Intake and Output Vital Signs (last 24 hours): Temp Pulse Resp BP Pulse Ox 98.8 F 100 H 16 119/69 97 08/14/18 03:53 08/14/18 03:53 08/14/18 03:53 08/14/18 03:53 08/14/18 06:22 - Medications Medications: Current Medications Vancomycin HCl 1 gm/ Sodium (Chloride) 250 mls @ 166.667 mls/hr IVPB Q12 YARY; Protocol Cefepime HCl 1 gm/ Sodium (Chloride) 100 mls @ 100 mls/hr IVPB Q12 YARY; Protocol - Labs Labs: 08/14/18 05:01 08/14/18 05:01
[2018-08-14] MEDS ORDERED: Cefepime 1 GM in Sodium Chloride 0.9% 100 ML IVPB SCH (21:00)
[2018-08-15] MEDS ORDERED: Oxycodone/Acetaminophen 5/325 mg Tab ONE (10:36)
== END 2018-08-14 11:30 | disposition left against medical advice (07) ==
LOC: H.ER 03:48 → H.ERHOLD 07:16
PROVIDERS: ADMIT Family Medicine; ATTEND Family Medicine
DX: E11.621 Type 2 diabetes mellitus with foot ulcer (principal); E11.40 Type 2 diabetes mellitus with diabetic neuropathy, unspecified; E11.65 Type 2 diabetes mellitus with hyperglycemia; Z79.4 Long term (current) use of insulin; I10 Essential (primary) hypertension; Z91.14 Patient's other noncompliance with medication regimen; M19.90 Unspecified osteoarthritis, unspecified site; F41.9 Anxiety disorder, unspecified; F17.210 Nicotine dependence, cigarettes, uncomplicated; F31.9 Bipolar disorder, unspecified; L97.519 Non-pressure chronic ulcer of other part of right foot with unspecified severity; L97.429 Non-pressure chronic ulcer of left heel and midfoot with unspecified severity; F25.9 Schizoaffective disorder, unspecified
CPT/HCPCS: 73630; 80053; 81003; 82803; 82948; 85025; 87040; 87070; 87181; 96361; 96365; 96366; 96375; 99283; G0378; J7030

== ENCOUNTER 2018-08-29 09:08 | Emergency (ER) | payer MEDICAID ==
[2018-08-29 09:10] VITALS: BMI 31.1
[2018-08-29 09:12] VITALS: BP 126/66; PULSE 109; RESP 20; TEMP 98.9; O2SAT 97
[2018-08-29] MEDS ORDERED: Oxycodone/Acetaminophen 5/325 mg Tab PO STA (10:02)
[2018-08-29 10:58] LABS: BASO # 0.1 K/uL (0.0-0.2); BASO % 0.8 % (0.0-2.0); EOS # 0.6 K/uL (0.0-0.7); EOS % 5.2 % (0.0-4.0); HEMOGLOBIN 12.4 g/dL (12.0-18.0); LYMPH # 3.2 K/uL (1.0-4.3); LYMPH % 28.1 % (20.0-40.0); MEAN CELL VOLUME 89.9 fl (80.0-94.0); MEAN CORPUSCULAR HEMOGLOBIN 29.4 pg (27.0-31.0); MEAN CORPUSCULAR HGB CONC 32.7 g/dL (33.0-37.0); MEAN PLATELET VOLUME 7.8 fl (7.2-11.7); MONO # 0.6 K/uL (0.0-0.8); NEUT # 6.9 K/uL (1.8-7.0); NEUT % 60.9 % (50.0-75.0); NRBC % 0.1 % (0.0-0.0); RBC 4.21 Mil/uL (4.40-5.90); RED CELL DISTRIBUTION WIDTH 12.9 % (11.5-14.5); WHITE BLOOD COUNT 11.3 K/uL (4.8-10.8)
[2018-08-29 11:08] LABS: BLOOD UREA NITROGEN 20 mg/dl (9-20); CALCIUM 9.1 mg/dL (8.4-10.2); GFR NON-AFRICAN AMERICAN > 60
[2018-08-29] MEDS ORDERED: Sodium Chloride 0.9% 1,000 ML IV STA ×2 (11:20)
--- NOTE | 2018-08-29 11:20 | ED PDOC ---
Lower Extremity Pain/Injury Time Seen by Provider: 08/29/18 09:39 Chief Complaint (Nursing): Lower Extremity Problem/Injury Chief Complaint (Provider): Lower Extremity Problem/Injury History Per: Patient History/Exam Limitations: no limitations Onset/Duration Of Symptoms: Days Current Symptoms Are (Timing): Still Present Additional Complaint(s): Frandy Arreola is a 42 year old male with a past medical history of hypertension and diabetes who is known for reoccurring visits for bilateral diabetic foot ulcers. As per triage note, patient is here for abdominal pain but he denies that and states that he is here today for exacerbation of pain to bilateral feet. He reports that the pain became severe yesterday and so he went to a different hospital but they stated that they didnt have an infectious disease specialist and couldnt help him. Patient states that he went home and came to this ED today. Patient states that he has been cleaning the ulcers daily with hydrogen peroxide soaked gauze. He denies any fevers, chills, new pain/injuries, or pus from foot ulcer. PMD: none provided Past Medical History Reviewed: Historical Data, Nursing Documentation, Vital Signs Vital Signs: Last Vital Signs Temp 98.9 F 08/29/18 09:11 Pulse 109 H 08/29/18 09:11 Resp 20 08/29/18 09:11 BP 126/66 08/29/18 09:11 Pulse Ox 97 08/29/18 09:11 - Medical History PMH: Anxiety, Arthritis (backs and LE), Bipolar Disorder, Depression, Diabetes, HTN, Schizophrenia (schizoaffective disorder) Denies: Chronic Kidney Disease - Surgical History Other surgeries: right ear surgery. right and left foot surgery - Family History Family History: States: Unknown Family Hx - Social History Current smoker - smoking cessation education provided: Yes Alcohol: Occasional Drugs: Other (former user) - Immunization History Hx Tetanus Toxoid Vaccination: No Hx Influenza Vaccination: No Hx Pneumococcal Vaccination: No - Home Medications Home Medications: Ambulatory Orders Medication Instructions Recorded Insulin Aspart [Novolog] 28 unit SC BID 04/25/17 Insulin Glargine,Hum.rec.anlog 28 unit SQ BID 07/14/18 [Lantus] Ciprofloxacin HCl [Cipro] 500 mg PO BID #14 tablet 07/16/18 - Allergies Allergies/Adverse Reactions: Allergies Allergy/AdvReac Type Severity Reaction Status Date / Time NSAIDS (Non-Steroidal Allergy RASH Verified 07/30/18 02:56 Anti-Inflamma Review of Systems ROS Statement: Except As Marked, All Systems Reviewed And Found Negative Constitutional: Negative for: Fever, Chills Musculoskeletal: Positive for: Foot Pain. Negative for: Other (pus from foot ulcers) Physical Exam - Reviewed Nursing Documentation Reviewed: Yes Vital Signs Reviewed: Yes - Physical Exam Appears: Positive for: Well, Non-toxic, No Acute Distress Head Exam: Positive for: ATRAUMATIC, NORMAL INSPECTION, NORMOCEPHALIC Skin: Positive for: Normal Color, Warm, DRY Eye Exam: Positive for: EOMI, Normal appearance, PERRL ENT: Positive for: Normal ENT Inspection Neck: Positive for: Normal, Painless ROM Cardiovascular/Chest: Positive for: Regular Rate, Rhythm. Negative for: Murmur Respiratory: Positive for: Normal Breath Sounds. Negative for: Respiratory Distress Gastrointestinal/Abdominal: Positive for: Normal Exam, Soft. Negative for: Tenderness Back: Positive for: Normal Inspection Extremity: Positive for: Normal ROM (pain when removing gauze from feet), Other (bilateral feet wrapped in gauze with mild oozing through gauze at site of ulcers left foot: 2 cm open ulcer exposed muscle with clean borders no drainage Right foot: 1 cm open ulcer exposed muscle, no drainage clean borders; 4th digit of right foot: dorsal surface 5 mm small ulceration without exposed muscle bone no surrounding fluctuance, no signs of infection). Negative for: Deformity Neurologic/Psych: Positive for: Alert, Oriented. Negative for: Motor/Sensory Deficits - Laboratory Results Result Diagrams: 08/29/18 10:30 08/29/18 10:30 - ECG O2 Sat by Pulse Oximetry: 97 (RA) Pulse Ox Interpretation: Normal Medical Decision Making Medical Decision Making: Time: 10:11 A/P: acute worsening of pain bilateral diabetic foot ulcers --Wounds appear to have no infection --Podiatry consult placed --Percocet for pain --Bilateral foot x-rays --Basic labs --Reassess patient Scribe Attestation: Documented by Karime Salomon, acting as a scribe for Patricia Nguyen MD. Provider Scribe Attestation: All medical record entries made by the Scribe were at my direction and personally dictated by me. I have reviewed the chart and agree that the record a ccurately reflects my personal performance of the history, physical exam, medical decision making, and the department course for this patient. I have also personally directed, reviewed, and agree with the discharge instructions and disposition. 14:00 Pt seen and evaluated by podiatry. Pt given 10 day Rx for Keflex. Pt to follow up with [facility] and given referral information for [facility]. Cutlures sent. Glucose improved. Pt instructed to improve glucose control with medication compliance and frequent glucose level monitoring. Return parameters discussed. Disposition - Disposition Disposition: Routine/Home Disposition Time: 14:03 Condition: IMPROVED Forms: IP Ghoster (Monegasque)
[2018-08-29] MEDS ORDERED: Insulin Regular 100 units/ml SC STA (11:29)
[2018-08-29] MEDS ORDERED: Oxycodone/Acetaminophen 5/325 mg Tab ONE (11:51)
[2018-08-29] MEDS ORDERED: Insulin Regular 100 units/ml ONE (11:52)
--- NOTE | 2018-08-29 13:46 | RAD ---
Date of service: 08/29/2018 PROCEDURE: Bilateral Feet Radiographs. HISTORY: BL diabetic foot ulcers. R/O osteo COMPARISON: None. FINDINGS: BONES: Right Foot: No fracture repair of 5th digit mutation at distal metatarsal level. Similar. Here smooth cortical concavities noted [id number] element of chronic osteomyelitis here not excluded. The periosteal reaction along the lateral 4th metatarsal shaft is unchanged. No interval areas of periosteal reaction or interval areas of cortical destruction seen to suggest interval new osteomyelitis foci. Hallux valgus Left Foot: No fracture JOINTS: Right Foot: 1st metatarsal-phalangeal joint arthrosis Left Foot: 1st metatarsal-phalangeal joint arthrosis SOFT TISSUES: Right Foot: Swelling and mottled lucency surrounding the 5th digit amputation level-similar status. A cellulitis here compatible with this. Correlation needed. No gas-forming cellulitis noted. Concomitant ulcer large and more conspicuous on the current study compared the prior study measuring at least 2.7 cm. Left Foot: Normal. OTHER FINDINGS: None. IMPRESSION: Status post 5th digit amputation with stable appearing after mentioned cortical contour changes. No interval cortical destruction or interval periosteal reaction here noted or along the lateral right 4th metatarsal shaft. A chronic osteomyelitis can simulate this. Extensive soft tissue altered density and swelling surrounding the 5th metatarsal level currently the ulcer is more lucent and more discrete appearing than before. No gas-forming cellulitis noted. Underlying cellulitis with ulcer lymphedema compatible with this appearance
--- NOTE | 2018-08-29 13:53 | CP.PCM.PN ---
Subjective - Date & Time of Evaluation Date of Evaluation: 08/29/18 Time of Evaluation: 13:50 - Subjective Subjective: Podiatry Consult Note: Dr. Carranza 42 year old male with PMH of DM with neuropathy, HTN, arthritis, bipolar Disorder, depression, anxiety, and schizophrenia presents to the ED for worsening bilateral foot ulcerations L>R. Patient is not very responsive. Reports that he cleans his wounds with water daily, denies of any dressing changes. Denies seeing a doll repairer regularly. States the wound have been present for a very long time. Patient states that he has tingling and numbness in his feet due to his neuropathy. Patient denies any other pedal complaint. Patient denies any recent F/N/V/C or SOB. Patient denies of having a primary c are doctor. Reports that he usually goes to [facility] but decided to come here instead. PMHx: DM with neuropathy, HTN, arthritis, bipolar Disorder, depression, anxiety, and schizophrenia PSHx: left 5th digit amputation (Dr. Alban Carlisle DPM from [facility]), multiple ear surgery Allergies: NSAID (swelling) Social Hx: Smoker 1ppd since age of 9, denies drinking EtOH or illicit drug use Objective - Vital Signs/Intake and Output Vital Signs (last 24 hours): Temp Pulse Resp BP Pulse Ox 98.9 F 109 H 20 126/66 97 08/29/18 09:11 08/29/18 09:11 08/29/18 09:11 08/29/18 09:11 08/29/18 11:04 - Labs Labs: 08/29/18 10:30 08/29/18 10:30 - Constitutional Appears: Well, Non-toxic - Head Exam Head Exam: ATRAUMATIC - Extremities Exam Additional comments: Bilateral lower extremity focused exam: Vasc: DP/PT 2/4, Cap refill < 3 sec in all digits, temperature gradient warm to warm from proximal to distal b/l. Pedal hair present. Minimal non pitting edema accompanied with erythema noted localized to b/l feet and ankle Derm: Right: Circular ulceration measuring approximately 1.5 cm in diameter x 0.3 cm. Periwound area is hyperkeratotic, minimal malodor noted, very minimal serous drainage, positive undermining, No tracking or probing to bone, Base is granular 85%, fibrous 15%. javed-wound hyperkeratosis noted, Diffuse dryness of the skin of the plantar aspect of the foot. Erythema noted in the javed-wound area. Left: Ulceration noted to the lateral aspect of forefoot at sub metatarsal 5 measuring approximately 3.5 cm x 3 cm x 0.2 cm, erythema, no undermining, No tunneling, no active drainage, no probe to bone; periwound mild maceration with hyperkeratosis noted at the edges, (+) mild malodor, no fluctanance or abscess appreciated, no active drainage, no streaking. base is mainly grannular 70% fibrotic 30%; Both wounds are suspicious for active infection Neuro: Gross sensation intact, protective sensation diminished b/l. MSK: B/L cavus foot type; minimal pain with palpation to skin surrounding ulcerations b/l, Ankle ROM WNL b/l. Muscle power intact 5/5 b/l. - Neurological Exam Neurological Exam: Alert, Awake, Oriented x3 - Psychiatric Exam Psychiatric exam: Normal Affect - Skin Skin Exam: Normal Color Assessment and Plan - Assessment and Plan (Free Text) Assessment: 42 year old male with extensive PMHx was seen and evaluated in the ED for B/L foot ulcerations (Santiago 2) Plan: Patient seen and examined Discussed plan in detail with attending Dr. Jimenez Labs, vitals, chart reviewed, afebrile, leukocytosis WBC 11.5 X-rays reviewed: L foot X-ray Impression: Sclerotic changes of the 5th metatarsal shaft suspicious for chronic osteomyelitis. R foot X-ray - no fracture, No signs of osteomyelitis. Wound cultures taken from bilateral feet - pending Patient will be d/c with keflex Wounds cleaned using saline and dressing applied using xeroform, DSD Thank you for the podiatry consult and allowing to take part in patient care Patient will follow up in wound care center in [facility]
== END 2018-08-29 17:10 | disposition home or self-care (01) ==
LOC: H.ER 09:08
DX: L97.519 Non-pressure chronic ulcer of other part of right foot with unspecified severity (principal); L97.529 Non-pressure chronic ulcer of other part of left foot with unspecified severity; E11.40 Type 2 diabetes mellitus with diabetic neuropathy, unspecified; E11.621 Type 2 diabetes mellitus with foot ulcer; F17.210 Nicotine dependence, cigarettes, uncomplicated
CPT/HCPCS: 73630; 80048; 85025; 87070; 87181; 96372; 99283; J7030

== ENCOUNTER 2018-09-13 19:05 | Emergency (ER) | payer MEDICAID ==
[2018-09-13 19:05] VITALS: BMI 31.1
[2018-09-13] MEDS ORDERED: Clindamycin 600 MG in Sodium Chloride 0.9% 100 ML IVPB ONE (19:33)
[2018-09-13 20:19] LABS: BASO # 0.1 K/uL (0.0-0.2); EOS # 0.5 K/uL (0.0-0.7); EOS % 4.6 % (0.0-4.0); HEMOGLOBIN 11.5 g/dL (12.0-18.0); LYMPH # 3.6 K/uL (1.0-4.3); LYMPH % 30.4 % (20.0-40.0); MEAN CELL VOLUME 86.7 fl (80.0-94.0); MEAN CORPUSCULAR HEMOGLOBIN 28.5 pg (27.0-31.0); MEAN CORPUSCULAR HGB CONC 32.9 g/dL (33.0-37.0); MEAN PLATELET VOLUME 7.7 fl (7.2-11.7); MONO # 0.6 K/uL (0.0-0.8); MONO % 4.9 % (0.0-10.0); NEUT % 59.1 % (50.0-75.0); RBC 4.03 Mil/uL (4.40-5.90); RED CELL DISTRIBUTION WIDTH 13.3 % (11.5-14.5); WHITE BLOOD COUNT 11.9 K/uL (4.8-10.8)
--- NOTE | 2018-09-13 20:42 | ED PDOC ---
Lower Extremity Pain/Injury Time Seen by Provider: 09/13/18 19:11 Chief Complaint (Nursing): Lower Extremity Problem/Injury History Per: Patient History/Exam Limitations: no limitations Onset/Duration Of Symptoms: Days Current Symptoms Are (Timing): Better Additional Complaint(s): Hx of DM, neuropathy, foot ulcers presenting with feet pain, states that his feet are burning and he had difficulty walking on them for long periods of times. Patient admits to missing appointments with podiatry and last saw [facility] 3 weeks ago in hospital. States he received a letter that he needed additional testing 2 weeks ago but decided to wait until today to come. Denies drainage from ulcers, fevers, chills, nausea, vomiting. Patient has been non- compliant with clindamycin. Victim Witness Administrator: Dr. De Los Santos Past Medical History Reviewed: Historical Data, Nursing Documentation, Vital Signs Vital Signs: Last Vital Signs Temp 98.5 F 09/13/18 19:09 Pulse 109 H 09/13/18 19:09 Resp 20 09/13/18 19:09 BP 114/68 09/13/18 19:09 Pulse Ox 99 09/13/18 19:09 - Medical History PMH: Anxiety, Arthritis (backs and LE), Bipolar Disorder, Depression, Diabetes, HTN, Schizophrenia (schizoaffective disorder) Denies: Chronic Kidney Disease - Family History Family History: States: Unknown Family Hx - Immunization History Hx Tetanus Toxoid Vaccination: No Hx Influenza Vaccination: No Hx Pneumococcal Vaccination: No - Home Medications Home Medications: Ambulatory Orders Medication Instructions Recorded Insulin Aspart [Novolog] 28 unit SC BID 04/25/17 Insulin Glargine,Hum.rec.anlog 28 unit SQ BID 07/14/18 [Lantus] Ciprofloxacin HCl [Cipro] 500 mg PO BID #14 tablet 07/16/18 Cephalexin [cephalexin] 500 mg PO Q6 #40 cap 08/29/18 Acetaminophen [Pain Reliever] 500 mg PO Q4 #30 tablet 09/13/18 Ciprofloxacin [Cipro] 500 mg PO BID 10 Days tab 09/13/18 - Allergies Allergies/Adverse Reactions: Allergies Allergy/AdvReac Type Severity Reaction Status Date / Time NSAIDS (Non-Steroidal Allergy RASH Verified 09/13/18 19:08 Anti-Inflamma Review of Systems ROS Statement: Except As Marked, All Systems Reviewed And Found Negative Skin: Positive for: Lesions (Ulcers) Physical Exam - Reviewed Nursing Documentation Reviewed: Yes Vital Signs Reviewed: Yes - Physical Exam Appears: Positive for: Non-toxic, No Acute Distress. Negative for: Well (Disheveled) Head Exam: Positive for: ATRAUMATIC, NORMAL INSPECTION, NORMOCEPHALIC Skin: Positive for: Normal Color, Warm, DRY Eye Exam: Positive for: EOMI, Normal appearance, PERRL ENT: Positive for: Normal ENT Inspection Neck: Positive for: Normal, Painless ROM Cardiovascular/Chest: Positive for: Regular Rate, Rhythm Respiratory: Positive for: CNT, Normal Breath Sounds Gastrointestinal/Abdominal: Positive for: Normal Exam, Soft Back: Positive for: Normal Inspection Extremity: Positive for: Normal ROM, Other (Well healing ulcers of R and L heels, R- 4x2cm, L 5x2cm, non-draining, no signficiant erythema) Neurologic/Psych: Positive for: Alert, Oriented - Laboratory Results Result Diagrams: 09/13/18 20:00 09/13/18 21:15 - ECG O2 Sat by Pulse Oximetry: 99 Pulse Ox Interpretation: Normal Medical Decision Making Medical Decision MakinPM Patient presenting with diabetic foot ulcers and foot pain --Patient is well appearing, afebrile --Ulcers are very well appearing, stable, do not appear cellulitic --Patient had foot ulcers that grew positive, will switch to cipro given sensitivities --Will check labs 900PM --WBC count is at patient's baseline 945PM --Instructed patient to stop taking clinda and start cipro due to sensitivities --Advised patient to followup with Dr. De Los Santos and pain management --Well appearing upon discharge Disposition - Clinical Impression Clinical Impression: Diabetic foot ulcer - Patient ED Disposition Is Patient to be Admitted: No - Disposition Referrals: Alban De Los Santos DPM [Doctor Podiatric Medicine] - Chester Hay MD [Staff Provider] - Disposition: Routine/Home Disposition Time: 21:51 Condition: STABLE Additional Instructions: Please followup with podiatry and pain management. Stop taking the clindamycin and start taking the ciprofloxacin. Prescriptions: Acetaminophen [Pain Reliever] 500 mg PO Q4 #30 tablet Ciprofloxacin [Cipro] 500 mg PO BID 10 Days tab Instructions: Foot Care for Diabetics, Diabetic Foot Ulcer (DC) Forms: [employer] (Albanian)
[2018-09-13 21:41] LABS: BLOOD UREA NITROGEN 29 mg/dl (9-20); CALCIUM 8.8 mg/dL (8.4-10.2); GFR NON-AFRICAN AMERICAN 55
[2018-09-13 22:51] VITALS: BP 115/77; PULSE 91; RESP 18; TEMP 97.9; O2SAT 96
== END 2018-09-13 22:45 | disposition home or self-care (01) ==
LOC: H.ER 19:05
DX: E11.621 Type 2 diabetes mellitus with foot ulcer (principal); Z79.4 Long term (current) use of insulin; Z86.59 Personal history of other mental and behavioral disorders; I10 Essential (primary) hypertension

== ENCOUNTER 2018-09-29 21:48 | Inpatient (IN) | payer MEDICAID ==
[2018-09-29 21:48] VITALS: BMI 31.1
--- NOTE | 2018-09-29 22:25 | ED PDOC ---
Lower Extremity Pain/Injury Time Seen by Provider: 09/29/18 22:02 Chief Complaint (Nursing): Lower Extremity Problem/Injury Chief Complaint (Provider): left foot pain History Per: Patient History/Exam Limitations: no limitations Onset/Duration Of Symptoms: Days (2) Current Symptoms Are (Timing): Still Present Additional Complaint(s): 43 y/o male brought in by EMS for evaluation of left foot pain x 2 days. Patient reports nonhealing diabetic foot ulcer, states he has been doing a lot of walking today and noticed ulcer to be bleeding. States he is supposed to be taking Cipro but was not able to fill the prescription. Denies fever, nausea/vomiting, chest pain, shortness of breath, palpitations, calf tenderness/swelling. Past Medical History Reviewed: Historical Data, Nursing Documentation, Vital Signs Vital Signs: Last Vital Signs Temp 98.1 F 09/29/18 21:50 Pulse 107 H 09/29/18 21:50 Resp 18 09/29/18 21:50 BP 139/80 09/29/18 21:50 Pulse Ox 96 09/29/18 21:50 - Medical History PMH: Anxiety, Arthritis (backs and LE), Asthma, Bipolar Disorder, Depression, Diabetes, HTN, Schizophrenia (schizoaffective disorder) Denies: Chronic Kidney Disease - Family History Family History: States: Unknown Family Hx - Immunization History Hx Tetanus Toxoid Vaccination: Yes Hx Influenza Vaccination: Yes Hx Pneumococcal Vaccination: Yes - Home Medications Home Medications: Ambulatory Orders Medication Instructions Recorded Insulin Aspart [Novolog] 28 unit SC BID 04/25/17 Insulin Glargine,Hum.rec.anlog 28 unit SQ BID 07/14/18 [Lantus] Acetaminophen [Pain Reliever] 500 mg PO Q4 #30 tablet 09/13/18 Clindamycin [Cleocin] 600 mg PO Q6 09/19/18 Insulin NPH Hum/Reg Insulin Hm 6 units TID 09/19/18 [Humulin 70-30 Vial] Ciprofloxacin [Cipro] 500 mg PO BID 10 Days tab 09/20/18 Ciprofloxacin [Cipro] 750 mg PO BID #60 tab 09/20/18 - Allergies Allergies/Adverse Reactions: Allergies Allergy/AdvReac Type Severity Reaction Status Date / Time NSAIDS (Non-Steroidal Allergy RASH Verified 09/19/18 14:19 Anti-Inflamma Review of Systems ROS Statement: Except As Marked, All Systems Reviewed And Found Negative Musculoskeletal: Positive for: Foot Pain Physical Exam - Reviewed Nursing Documentation Reviewed: Yes Vital Signs Reviewed: Yes - Physical Exam Appears: Positive for: Well, Non-toxic, No Acute Distress Extremity: Positive for: Normal ROM, Other ([id number] plantar foot ulcer left lateral foot. + odor, drainage. [id number] dried plantar foot ulcer right medial foot. FROM. Distal NV/motor intact) Neurologic/Psych: Positive for: Alert, Oriented (x3) - Laboratory Results Result Diagrams: 09/29/18 23:00 09/29/18 23:00 - ECG ECG: Positive for: Viewed By Me (reviewed by ED attending) ECG Rhythm: Positive for: Sinus Rhythm O2 Sat by Pulse Oximetry: 96 - Radiology X-Ray: Viewed By Me X-Ray Interpretation: No Acute Disease - Other Rad xray bilateral feet X-Ray: Viewed By Fl X-Ray Interpretation: no acute findings - Progress ED Course And Treament: -cbc -cmp -lactic acid -blood culture x2 -xray feet -podiatry consult Patient evaluated by Dr. Christensen, podiatry resident on-call, recommends admission for IV abx and MRI IV vanco, IV zosyn given Case discussed with Dr. Forbes, medical service on-call, for admission Disposition - Clinical Impression Clinical Impression: Cellulitis of foot, Diabetic foot ulcer - Disposition Disposition Time: 23:30 Condition: FAIR
[2018-09-29] MEDS ORDERED: Piperacillin/Tazobact 3.375 GM in Sodium Chloride 0.9% 100 ML IV ONE (23:01)
[2018-09-29 23:17] LABS: BASO # 0.1 K/uL (0.0-0.2); BASO % 0.8 % (0.0-2.0); EOS # 0.7 K/uL (0.0-0.7); EOS % 5.8 % (0.0-4.0); HEMOGLOBIN 11.1 g/dL (12.0-18.0); LYMPH # 3.1 K/uL (1.0-4.3); LYMPH % 26.8 % (20.0-40.0); MEAN CELL VOLUME 86.1 fl (80.0-94.0); MEAN CORPUSCULAR HEMOGLOBIN 28.7 pg (27.0-31.0); MEAN CORPUSCULAR HGB CONC 33.3 g/dL (33.0-37.0); MONO # 0.6 K/uL (0.0-0.8); MONO % 5.6 % (0.0-10.0); NRBC % 0.1 % (0.0-0.0); RBC 3.85 Mil/uL (4.40-5.90); RED CELL DISTRIBUTION WIDTH 13.1 % (11.5-14.5); WHITE BLOOD COUNT 11.5 K/uL (4.8-10.8)
--- NOTE | 2018-09-29 23:31 | CP.PCM.CON ---
History of Present Illness - History of Present Illness History of Present Illness: Podiatry Consult Note - Dr. Castellano 43 y/o male with PMHx of DM, HTN seen in ED for bilateral lower extremity ulcerations. States he has had them for years and they do not heal. 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 Denies following up with any doctor regularly for wound care. Admits to tingling and numbness with burning pains, intermittent in nature. Attributes this to his neuropathy which he has had for years. States his blood sugar is often poorly controlled. Denies seeing any pus come from the wounds but notes a foul smell from the foot wounds for several days. Relays that he has made several trips to the hospital to address the woun ds but leaves once he is admitted because he does not like the treatment upstairs as compared to the ER. Denies F/C/N/V/CP/SOB PSH: left foot 5th digit amputation with met head resection, ear surgeries All: NSAIDs SocHx: admits to 10-12 cigarettes/day, social EtOH use; denies illicit drug use Review of Systems - Review of Systems All systems: reviewed and no additional remarkable complaints except (per HPI) Past Patient History - Infectious Disease Hx of Infectious Diseases: None - Past Medical History & Family History Past Medical History?: Yes - Past Social History Smoking Status: Heavy Smoker > 10 Cigarettes Daily - CARDIAC Hx Hypertension: Yes - PULMONARY Hx Asthma: Yes - NEUROLOGICAL Hx Neurological Disorder: No - HEENT Hx HEENT Problems: No - RENAL Hx Chronic Kidney Disease: No - ENDOCRINE/METABOLIC Hx Endocrine Disorders: Yes Hx Diabetes Mellitus Type 2: Yes - HEMATOLOGICAL/ONCOLOGICAL Hx Blood Disorders: No - INTEGUMENTARY Hx Dermatological Problems: No - MUSCULOSKELETAL/RHEUMATOLOGICAL Hx Arthritis: Yes (backs and LE) - GASTROINTESTINAL Hx Gastrointestinal Disorders: No - GENITOURINARY/GYNECOLOGICAL Hx Genitourinary Disorders: No - PSYCHIATRIC Hx Anxiety: Yes Hx Bipolar Disorder: Yes Hx Depression: Yes Hx Schizophrenia: Yes (schizoaffective disorder) - SURGICAL HISTORY Hx Surgeries: Yes Other/Comment: right ear surgery. left FOOT TOE / 5TH DIGITsurgery - ANESTHESIA Hx Anesthesia: Yes Hx Anesthesia Reactions: No Hx Malignant Hyperthermia: No Meds Allergies/Adverse Reactions: Allergies Allergy/AdvReac Type Severity Reaction Status Date / Time NSAIDS (Non-Steroidal Allergy RASH Verified 09/19/18 14:19 Anti-Inflamma - Medications Medications: Current Medications Vancomycin HCl 1 gm/ Sodium (Chloride) 250 mls @ 166.667 mls/hr IVPB STAT STA; Protocol Stop: 09/30/18 00:30 Piperacillin Sod/Tazobactam (Sod 3.375 gm/ Sodium Chloride) 100 mls @ 100 mls/hr IV ONCE ONE; Protocol Stop: 09/30/18 00:00 Physical Exam - Constitutional Appears: Well, Non-toxic, No Acute Distress - Extremities Exam Additional comments: Lower extremity focused exam: Vasc: DP/PT pulses palpable 2/4 B/L. Temperature gradient warm to cool. CFT < 3 sec to all digits x9. No pedal edema noted Derm: Left: Open ulceration sub met 5 approx 3.5cm x 3cm x 0.4cm with fibrogranular wound base, active serosanguinous drainage, positive malodor, and significantly macerated wound borders with thickened 1cm macerated tissue rim. No fluctuance or suspected abscess formation. Wound probes deep but not to bone. Right: open circular ulceration sub met 1 approx 1.5cm in diameter and 0.3cm in depth with fibrogranular wound base and macerated wound rim and borders. Mild serous drainage elicited upon pressure. Positive malodor noted. Wound probes deep but not to bone. No fluctuance or suspected abscess formation Neuro: protective sensation grossly diminished Ortho: Pes cavus deformity B/L, R>L with plantarflexed 1st metatarsal noted to R foot. 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 No tenderness to palpation of ulceration sites - Neurological Exam Neurological exam: Alert, Oriented x3 - Psychiatric Exam Psychiatric exam: Normal Affect, Normal Mood Results - Vital Signs Recent Vital Signs: Last Vital Signs Temp 98.1 F 09/29/18 21:50 Pulse 107 H 09/29/18 21:50 Resp 18 09/29/18 21:50 BP 139/80 09/29/18 21:50 Pulse Ox 96 09/29/18 22:54 - Labs Result Diagrams: 09/30/18 06:00 09/29/18 23:00 Labs: Laboratory Results - last 24 hr 09/29/18 09/29/18 23:00 23:19 WBC 11.5 H RBC 3.85 L Hgb 11.1 L Hct 33.2 L MCV 86.1 MCH 28.7 MCHC 33.3 RDW 13.1 Plt Count 403 H MPV 7.0 L Neut % (Auto) 61.0 Lymph % (Auto) 26.8 [place] % (Auto) 5.6 Eos % (Auto) 5.8 H Baso % (Auto) 0.8 Neut # (Auto) 7.0 Lymph # (Auto) 3.1 [place] # (Auto) 0.6 Eos # (Auto) 0.7 Baso # (Auto) 0.1 POC Glucose (mg/dL) 201 H Assessment & Plan - Assessment and Plan (Free Text) Assessment: 43 y/o male with bilateral diabetic foot ulcers Plan Pt seen and evaluated in ED Discussed with attending Dr. Castellano Labs and vitals reviewed- WBC 11.5 Xrays reviewed by me - left foot shows no acute osseous findings; right foot xray shows s/p partial 5th ray amputation with possible erosive changes at remainder of 5th metatarsal - on previous xray report 09/17, r/o early osteomyelitis B/L lower extremity MRI w/o contrast ordered, pending Wound cultures taken of B/L LE Surgical shoes ordered for B/L feet, to be worn at all times Pt to be admitted for IV abx and r/o osteomyelitis Infectious disease consult placed for Dr. Corona, appreciate recs Will continue to follow pt while in house
[2018-09-29] MEDS ORDERED: Piperacillin/Tazobact 3.375 gm Inj IVPB ONE (23:32)
[2018-09-29 23:44] LABS: ALBUMIN 3.5 g/dL (3.5-5.0); ALT/SGPT 25 U/L (21-72); AST/SGOT 19 U/L (17-59); BLOOD UREA NITROGEN 22 mg/dl (9-20); CALCIUM 9.2 mg/dL (8.4-10.2); GFR NON-AFRICAN AMERICAN > 60
[2018-09-30] MEDS ORDERED: Vancomycin 1 g Inj ONE (01:27)
[2018-09-30] MEDS ORDERED: Glucagon Recombinant 1 mg Inj IM PRN (07:07)
[2018-09-30] MEDS ORDERED: Dextrose 50% SYRINGE Inj (50 ml) IV PRN (07:07)
[2018-09-30 07:34] LABS: HEMOGLOBIN 11.9 g/dL (12.0-18.0); MEAN CELL VOLUME 87.1 fl (80.0-94.0); MEAN CORPUSCULAR HEMOGLOBIN 28.9 pg (27.0-31.0); MEAN CORPUSCULAR HGB CONC 33.2 g/dL (33.0-37.0); RBC 4.13 Mil/uL (4.40-5.90); RED CELL DISTRIBUTION WIDTH 13.2 % (11.5-14.5); WHITE BLOOD COUNT 10.5 K/uL (4.8-10.8)
[2018-09-30] MEDS: Insulin Lispro (humaLOG) 100 Units/ml Inj SC SCH ×2 (08:23→17:31)
[2018-09-30] MEDS: Morphine 4 MG/ML VIAL IVP PRN ×2 (09:11→14:55)
[2018-09-30] MEDS: Piperacillin/Tazobact 3.375 GM in Sodium Chloride 0.9% 100 ML IVPB SCH ×2 (09:13→17:37)
--- NOTE | 2018-09-30 09:38 | RAD ---
Date of service: 09/29/2018 HISTORY: admit COMPARISON: No prior. FINDINGS: LUNGS: No active pulmonary disease. PLEURA: No significant pleural effusion identified, no pneumothorax apparent. CARDIOVASCULAR: No aortic atherosclerotic calcification present. Normal cardiac size. No pulmonary vascular congestion. OSSEOUS STRUCTURES: No significant abnormalities. VISUALIZED UPPER ABDOMEN: Normal. OTHER FINDINGS: None. IMPRESSION: No active disease.
--- NOTE | 2018-09-30 09:41 | RAD ---
Date of service: 09/29/2018 PROCEDURE: HISTORY: plantar foot ulcers bilaterally COMPARISON: TECHNIQUE: FINDINGS: No fracture dislocation. Degenerative changes with hammertoe deformities of the toes. Status post resection of the left 5th distal middle and proximal phalanges. IMPRESSION: No fracture. No gross evidence of ulcer.
--- NOTE | 2018-09-30 10:53 | CP.PCM.PN ---
Subjective - Date & Time of Evaluation Date of Evaluation: 09/30/18 Time of Evaluation: 10:53 - Subjective Subjective: 43 y/o male seen at bedside this afternoon for bilateral lower extremity ulcerations. Pt states he still has intermittent pain in the feet with associated burning and tingling. States he was given Morphine for the pain but doesn't know if it is helping. Dressings are frayed and falling off at time of visit. Denies any overnight events. Denies F/C/N/V/CP/SOB Objective - Vital Signs/Intake and Output Vital Signs (last 24 hours): Temp Pulse Resp BP Pulse Ox 98.3 F 96 H 20 122/75 96 09/30/18 08:39 09/30/18 08:39 09/30/18 08:39 09/30/18 08:39 09/30/18 08:39 - Medications Medications: Current Medications Acetaminophen (Tylenol 325mg Tab) 650 mg PO Q4 PRN PRN Reason: Pain, Mild (1-3) Dextrose (Dextrose 50% Inj) 0 ml IV STAT PRN; Protocol PRN Reason: Hypoglycemia Protocol Dextrose (Glutose 15) 0 gm PO ONCE PRN; Protocol PRN Reason: Hypoglycemia Protocol Glucagon (Glucagen Diagnostic Kit) 0 mg IM STAT PRN; Protocol PRN Reason: Hypoglycemia Protocol Heparin Sodium (Porcine) (Heparin) 5,000 units SC Q8 YARY; Protocol Last Admin: 09/30/18 09:17 Dose: 5,000 units Vancomycin HCl 1 gm/ Sodium (Chloride) 250 mls @ 166.667 mls/hr IVPB Q12@0100,1300 YARY; Protocol Piperacillin Sod/Tazobactam (Sod 3.375 gm/ Sodium Chloride) 100 mls @ 100 mls/hr IVPB Q8 YARY; Protocol Last Admin: 09/30/18 09:13 Dose: 100 mls/hr Insulin Detemir (Levemir) 28 units SC BID YARY Insulin Human Lispro (Humalog) 0 units SC ACHS YARY; Protocol Last Admin: 09/30/18 08:23 Dose: 1 unit Morphine Sulfate (Morphine) 2 mg IVP Q4 PRN PRN Reason: Pain, severe (8-10) Last Admin: 09/30/18 09:11 Dose: 2 mg - Labs Labs: 09/30/18 06:00 09/29/18 23:00 - Constitutional Appears: Well, Non-toxic, No Acute Distress - Extremities Exam Additional comments: Lower extremity focused exam: Mild serosanguinous strikethrough noted on R foot bandage. No strikethrough to L foot bandage. Vasc: DP/PT pulses palpable 2/4 B/L. Temperature gradient warm to cool. CFT < 3 sec to all digits x9. No pedal edema noted Derm: Left: Open ulceration sub met 5 approx 3.5cm x 3cm x 0.4cm with fibrogranular wound base, active serosanguinous drainage, positive malodor, and significantly macerated wound borders with thickened 1cm macerated tissue rim. No fluctuance or suspected abscess formation. Wound probes deep but not to bone. Right: open circular ulceration sub met 1 approx 1.5cm in diameter and 0.3cm in depth with fibrogranular wound base and macerated wound rim and borders. Mild serous drainage elicited upon pressure. Positive malodor noted. Wound probes deep but not to bone. No fluctuance or suspected abscess formation Neuro: protective sensation grossly diminished Ortho: Pes cavus deformity B/L, R>L with plantarflexed 1st metatarsal noted to R foot. 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 No tenderness to palpation of ulceration sites - Neurological Exam Neurological Exam: Alert, Awake, Oriented x3 - Psychiatric Exam Psychiatric exam: Normal Affect, Normal Mood Assessment and Plan - Assessment and Plan (Free Text) Assessment: 43 y/o male with bilateral diabetic foot ulcers Plan Pt seen and evaluated at bedside Discussed plan with attending Dr. Castellano Labs and vitals reviewed- WBC 10.5 Xrays of B/L feet- left foot shows no acute osseous findings; right foot xray shows s/p partial 5th ray amputation with possible erosive changes at remainder of 5th metatarsal - on previous xray report 09/17, r/o early osteomyelitis MRI B/L pending Wound cultures pending Surgical shoes ordered for B/L feet, to be worn at all times Continue IV Vanco/Zosyn - await further recommendations from Dr. Corona Will continue to follow pt while in house
--- NOTE | 2018-09-30 13:36 | CP.PCM.CON ---
History of Present Illness - History of Present Illness History of Present Illness: 42 year old male with PMH of DM with neuropathy, HTN, arthritis, bipolar Disorder, depression, anxiety, and schizophrenia seen and evaluated in the the ED for bilateral foot ulcerations L>R. ID consulted for antibiotic management cultures pending Started on Vanco/zosyn emopirically MRI / Vascular studies pending PMHx: DM with neuropathy, HTN, arthritis, bipolar Disorder, depression, anxiety, and schizophrenia PSHx: left 5th digit amputation (Dr. Alban Carlisle DPM from [facility] [place]), multiple ear surgery Allergies: NSAID (swelling) Social Hx: Smoker 1ppd 15 years, denies drinking EtOH or illicit drug use Review of Systems - Review of Systems All systems: reviewed and no additional remarkable complaints except Past Patient History - Infectious Disease Hx of Infectious Diseases: None - Past Medical History & Family History Past Medical History?: Yes - Past Social History Smoking Status: Heavy Smoker > 10 Cigarettes Daily - CARDIAC Hx Hypertension: Yes - PULMONARY Hx Asthma: Yes - NEUROLOGICAL Hx Neurological Disorder: No - HEENT Hx HEENT Problems: No - RENAL Hx Chronic Kidney Disease: No - ENDOCRINE/METABOLIC Hx Endocrine Disorders: Yes Hx Diabetes Mellitus Type 2: Yes - HEMATOLOGICAL/ONCOLOGICAL Hx Blood Disorders: No - INTEGUMENTARY Hx Dermatological Problems: No - MUSCULOSKELETAL/RHEUMATOLOGICAL Hx Arthritis: Yes (backs and LE) - GASTROINTESTINAL Hx Gastrointestinal Disorders: No - GENITOURINARY/GYNECOLOGICAL Hx Genitourinary Disorders: No - PSYCHIATRIC Hx Anxiety: Yes Hx Bipolar Disorder: Yes Hx Depression: Yes Hx Schizophrenia: Yes (schizoaffective disorder) - SURGICAL HISTORY Hx Surgeries: Yes Other/Comment: right ear surgery. left FOOT TOE / 5TH DIGITsurgery - ANESTHESIA Hx Anesthesia: Yes Hx Anesthesia Reactions: No Hx Malignant Hyperthermia: No Meds Allergies/Adverse Reactions: Allergies Allergy/AdvReac Type Severity Reaction Status Date / Time NSAIDS (Non-Steroidal Allergy RASH Verified 09/19/18 14:19 Anti-Inflamma - Medications Medications: Current Medications Acetaminophen (Tylenol 325mg Tab) 650 mg PO Q4 PRN PRN Reason: Pain, Mild (1-3) Dextrose (Dextrose 50% Inj) 0 ml IV STAT PRN; Protocol PRN Reason: Hypoglycemia Protocol Dextrose (Glutose 15) 0 gm PO ONCE PRN; Protocol PRN Reason: Hypoglycemia Protocol Glucagon (Glucagen Diagnostic Kit) 0 mg IM STAT PRN; Protocol PRN Reason: Hypoglycemia Protocol Heparin Sodium (Porcine) (Heparin) 5,000 units SC Q8 YARY; Protocol Last Admin: 09/30/18 09:17 Dose: 5,000 units Vancomycin HCl 1 gm/ Sodium (Chloride) 250 mls @ 166.667 mls/hr IVPB Q12@0100,1300 YARY; Protocol Piperacillin Sod/Tazobactam (Sod 3.375 gm/ Sodium Chloride) 100 mls @ 100 mls/hr IVPB Q8 YARY; Protocol Last Admin: 09/30/18 09:13 Dose: 100 mls/hr Insulin Detemir (Levemir) 28 units SC BID YARY Insulin Human Lispro (Humalog) 0 units SC ACHS YARY; Protocol Last Admin: 09/30/18 08:23 Dose: 1 unit Morphine Sulfate (Morphine) 2 mg IVP Q4 PRN PRN Reason: Pain, severe (8-10) Last Admin: 09/30/18 09:11 Dose: 2 mg Physical Exam - Constitutional Appears: Chronically Ill - Head Exam Head Exam: ATRAUMATIC - Eye Exam Eye Exam: absent: Conjunctival injection, Scleral icterus - ENT Exam ENT Exam: Mucous Membranes Dry - Neck Exam Neck exam: Negative for: Lymphadenopathy - Respiratory Exam Respiratory Exam: Decreased Breath Sounds - Cardiovascular Exam Cardiovascular Exam: REGULAR RHYTHM - GI/Abdominal Exam GI & Abdominal Exam: Diminished Bowel Sounds - Rectal Exam Rectal Exam: Deferred - Exam Exam: NORMAL INSPECTION - Extremities Exam Extremities exam: Positive for: pedal edema, pedal pulses present. Negative for: calf tenderness, tenderness Additional comments: bilat foot ulcers noted Vasc: DP/PT pulses palpable 2/4 B/L. Temperature gradient warm to cool. CFT < 3 sec to all digits x9. No pedal edema noted Derm: Left: Open ulceration sub met 5 approx 3.5cm x 3cm x 0.4cm with fibrogranular wound base, active serosanguinous drainage, positive malodor, and significantly macerated wound borders with thickened 1cm macerated tissue rim. No fluctuance or suspected abscess formation. Wound probes deep but not to bone. Right: open circular ulceration sub met 1 approx 1.5cm in diameter and 0.3cm in depth with fibrogranular wound base and macerated wound rim and borders. Mild serous drainage elicited upon pressure. Positive malodor noted. Wound probes deep but not to bone. No fluctuance or suspected abscess formation Neuro: protective sensation grossly diminished Ortho: Pes cavus deformity B/L, R>L with plantarflexed 1st metatarsal noted to R foot. 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 No tenderness to palpation of ulceration sites - Back Exam Back exam: absent: CVA tenderness (L), CVA tenderness (R) - Neurological Exam Neurological exam: Alert, CN II-XII Intact, Oriented x3 - Psychiatric Exam Psychiatric exam: Depressed - Skin Skin Exam: Dry Results - Vital Signs Recent Vital Signs: Last Vital Signs Temp 98.3 F 09/30/18 08:39 Pulse 96 H 09/30/18 08:39 Resp 20 09/30/18 08:39 BP 122/75 09/30/18 08:39 Pulse Ox 96 09/30/18 08:39 - Labs Result Diagrams: 09/30/18 06:00 09/29/18 23:00 Labs: Laboratory Results - last 24 hr 09/29/18 09/29/18 09/29/18 23:00 23:00 23:00 WBC 11.5 H RBC 3.85 L Hgb 11.1 L Hct 33.2 L MCV 86.1 MCH 28.7 MCHC 33.3 RDW 13.1 Plt Count 403 H MPV 7.0 L Neut % (Auto) 61.0 Lymph % (Auto) 26.8 [place] % (Auto) 5.6 Eos % (Auto) 5.8 H Baso % (Auto) 0.8 Neut # (Auto) 7.0 Lymph # (Auto) 3.1 [place] # (Auto) 0.6 Eos # (Auto) 0.7 Baso # (Auto) 0.1 Sodium 139 Potassium 3.8 Chloride 104 Carbon Dioxide 26 Anion Gap 13 BUN 22 H Creatinine 0.9 Est GFR ( Amer) > 60 Est GFR (Non-Af Amer) > 60 POC Glucose (mg/dL) Random Glucose 239 H Lactic Acid 1.1 Calcium 9.2 Total Bilirubin 0.2 AST 19 ALT 25 Alkaline Phosphatase 107 Total Protein 7.1 Albumin 3.5 Globulin 3.6 Albumin/Globulin Ratio 1.0 Triglycerides Cholesterol LDL Cholesterol Direct HDL Cholesterol TSH 3rd Generation 09/29/18 09/30/18 09/30/18 23:19 05:50 06:00 WBC 10.5 RBC 4.13 L Hgb 11.9 L Hct 36.0 MCV 87.1 MCH 28.9 MCHC 33.2 RDW 13.2 Plt Count 404 H MPV Neut % (Auto) Lymph % (Auto) [place] % (Auto) Eos % (Auto) Baso % (Auto) Neut # (Auto) Lymph # (Auto) [place] # (Auto) Eos # (Auto) Baso # (Auto) Sodium Potassium Chloride Carbon Dioxide Anion Gap BUN Creatinine Est GFR ( Amer) Est GFR (Non-Af Amer) POC Glucose (mg/dL) 201 H 164 H Random Glucose Lactic Acid Calcium Total Bilirubin AST ALT Alkaline Phosphatase Total Protein Albumin Globulin Albumin/Globulin Ratio Triglycerides Cholesterol LDL Cholesterol Direct HDL Cholesterol TSH 3rd Generation 09/30/18 09/30/18 06:00 11:36 WBC RBC Hgb Hct MCV MCH MCHC RDW Plt Count MPV Neut % (Auto) Lymph % (Auto) [place] % (Auto) Eos % (Auto) Baso % (Auto) Neut # (Auto) Lymph # (Auto) [place] # (Auto) Eos # (Auto) Baso # (Auto) Sodium Potassium Chloride Carbon Dioxide Anion Gap BUN Creatinine Est GFR ( Amer) Est GFR (Non-Af Amer) POC Glucose (mg/dL) 222 H Random Glucose Lactic Acid Calcium Total Bilirubin AST ALT Alkaline Phosphatase Total Protein Albumin Globulin Albumin/Globulin Ratio Triglycerides 76 Cholesterol 145 LDL Cholesterol Direct 116 HDL Cholesterol 26 L TSH 3rd Generation 0.85 Assessment & Plan (1) Cellulitis of foot Status: Acute (2) Diabetic foot ulcer Status: Acute - Assessment and Plan (Free Text) Assessment: bilat foot ulcers r/o OM, PVD agree with IV rx await MRI, Vascuklar studies, cultures
[2018-09-30 16:58] VITALS: BP 119/75; PULSE 89; RESP 18; TEMP 98.8; O2SAT 95
[2018-09-30] MEDS: Insulin Detemir 100 Units/ml Inj SC SCH ×2 (17:32→17:38)
--- NOTE | 2018-10-01 03:17 | CP.PCM.HP ---
History of Present Illness - History of Present Illness History of Present Illness: CC: Feet Ulcer and Foul smelling Discharge History of Present Illness: A 43 y/o male with PMHx of DM, HTN seen in ED for bilateral lower extremity ulcerations. States he has had them for years and they do not heal. 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 Denies following up with any doctor regularly for wound care. Admits to tingling and numbness with burning pains, intermittent in nature. Attributes this to his neuropathy which he has had for years. States his blood sugar is often poorly controlled. Denies seeing any pus come from the wounds but notes a foul smell from the foot wounds for several days. Relays that he has made several trips to the hospital to address the wounds but leaves once he is admitted because he does not like the treatment upstairs as compared to the ER. Denies F/C/N/V/CP/SOB Present on Admission - Present on Admission Any Indicators Present on Admission: Yes History of Uncontrolled Diabetes: Yes Review of Systems - Review of Systems All systems: reviewed and no additional remarkable complaints except Past Patient History - Infectious Disease Hx of Infectious Diseases: None - Past Medical History & Family History Past Medical History?: Yes - Past Social History Smoking Status: Heavy Smoker > 10 Cigarettes Daily Alcohol: Social Drugs: Denies - CARDIAC Hx Hypertension: Yes - PULMONARY Hx Asthma: Yes - NEUROLOGICAL Hx Neurological Disorder: No - HEENT Hx HEENT Problems: No - RENAL Hx Chronic Kidney Disease: No - ENDOCRINE/METABOLIC Hx Endocrine Disorders: Yes Hx Diabetes Mellitus Type 2: Yes - HEMATOLOGICAL/ONCOLOGICAL Hx Blood Disorders: No - INTEGUMENTARY Hx Dermatological Problems: No - MUSCULOSKELETAL/RHEUMATOLOGICAL Hx Arthritis: Yes (backs and LE) - GASTROINTESTINAL Hx Gastrointestinal Disorders: No - GENITOURINARY/GYNECOLOGICAL Hx Genitourinary Disorders: No - PSYCHIATRIC Hx Anxiety: Yes Hx Bipolar Disorder: Yes Hx Depression: Yes Hx Schizophrenia: Yes (schizoaffective disorder) - SURGICAL HISTORY Hx Surgeries: Yes Other/Comment: right ear surgery. left FOOT TOE / 5TH DIGITsurgery - ANESTHESIA Hx Anesthesia: Yes Hx Anesthesia Reactions: No Hx Malignant Hyperthermia: No Meds Allergies/Adverse Reactions: Allergies Allergy/AdvReac Type Severity Reaction Status Date / Time NSAIDS (Non-Steroidal Allergy RASH Verified 09/19/18 14:19 Anti-Inflamma Physical Exam - Constitutional Appears: Well - Head Exam Head Exam: ATRAUMATIC, NORMAL INSPECTION, NORMOCEPHALIC - Eye Exam Eye Exam: EOMI, Normal appearance, PERRL Pupil Exam: NORMAL ACCOMODATION, PERRL - ENT Exam ENT Exam: Mucous Membranes Moist, Normal Exam - Neck Exam Neck exam: Positive for: Normal Inspection - Respiratory Exam Respiratory Exam: Clear to Auscultation Bilateral, NORMAL BREATHING PATTERN - Cardiovascular Exam Cardiovascular Exam: REGULAR RHYTHM - GI/Abdominal Exam GI & Abdominal Exam: Normal Bowel Sounds, Soft. absent: Tenderness - Extremities Exam Additional comments: B/L Plantar feet Ulcers with Foul smelling discharge. - Back Exam Back exam: NORMAL INSPECTION - Neurological Exam Neurological exam: Alert, CN II-XII Intact, Normal Gait, Oriented x3, Reflexes Normal - Psychiatric Exam Psychiatric exam: Normal Affect, Normal Mood - Skin Skin Exam: Dry, Intact, Normal Color, Warm Results - Vital Signs Recent Vital Signs: Last Vital Signs Temp 98.8 F 09/30/18 15:57 Pulse 89 09/30/18 15:57 Resp 18 09/30/18 15:57 BP 119/75 09/30/18 15:57 Pulse Ox 95 09/30/18 15:57 - Labs Result Diagrams: 09/30/18 06:00 09/29/18 23:00 Labs: Laboratory Results - last 24 hr 09/30/18 09/30/18 09/30/18 05:50 06:00 06:00 WBC 10.5 RBC 4.13 L Hgb 11.9 L Hct 36.0 MCV 87.1 MCH 28.9 MCHC 33.2 RDW 13.2 Plt Count 404 H POC Glucose (mg/dL) 164 H Triglycerides 76 Cholesterol 145 LDL Cholesterol Direct 116 HDL Cholesterol 26 L TSH 3rd Generation 0.85 09/30/18 09/30/18 11:36 16:34 WBC RBC Hgb Hct MCV MCH MCHC RDW Plt Count POC Glucose (mg/dL) 222 H 188 H Triglycerides Cholesterol LDL Cholesterol Direct HDL Cholesterol TSH 3rd Generation - Imaging and Cardiology Foot XR: Status: Report reviewed by me Additional comment: No OM Assessment & Plan (1) Diabetic foot infection Status: Acute Priority: High (2) Diabetic foot ulcer Status: Acute (3) Uncontrolled diabetes mellitus Status: Acute Priority: High - Assessment and Plan (Free Text) Plan: IVF IV Vancomycin and Zosyn Wound care by Identity Access Management Architect Podiatry and ID Consut Pain medication PRN MRI to R/O OM
--- NOTE | 2018-10-01 03:18 | CP.PCM.DIS ---
Provider - Provider Date of Admission: 09/29/18 23:25 Attending physician: Christelle Forbes MD Consults: 09/29/18 23:26 Podiatry Consult Stat Comment: Consulting Provider: Sudeep Castellano Consulting Physician: Sudeep Castellano Reason for Consult: infected diabetic foot ulcer 09/30/18 08:49 Case Management Referral Routine Comment: [facility] Physician Instructions: Reason For Exam: homeless Reason for Referral: Supervisor Travel Trailer Eval 09/30/18 08:50 Social Work Referral Routine Comment: halfway Physician Instructions: Reason For Exam: homeless 09/30/18 14:39 Infectious Disease Consult Routine Comment: bilateral diabetic foot ulcers Consulting Provider: Jeff Corona Consulting Physician: Jeff Corona Reason for Consult: bilateral diabetic foot ulcers, pending results of wound cx and MRI Time Spent in preparation of Discharge (in minutes): 15 Diagnosis - Discharge Diagnosis (1) Foot ulcer due to secondary DM Status: Acute Priority: High (2) Uncontrolled diabetes mellitus Status: Acute Priority: High (3) Diabetic foot infection Status: Acute Priority: High Hospital Course - Lab Results Lab Results: Micro Results 09/29/18 23:00 Foot - Left Gram Stain - Final 09/29/18 09:40 Foot - Right Gram Stain - Final Most Recent Lab Values WBC 10.5 K/uL (4.8-10.8) 09/30/18 06:00 RBC 4.13 Mil/uL (4.40-5.90) L 09/30/18 06:00 Hgb 11.9 g/dL (12.0-18.0) L 09/30/18 06:00 Hct 36.0 % (35.0-51.0) 09/30/18 06:00 MCV 87.1 fl (80.0-94.0) 09/30/18 06:00 MCH 28.9 pg (27.0-31.0) 09/30/18 06:00 MCHC 33.2 g/dL (33.0-37.0) 09/30/18 06:00 RDW 13.2 % (11.5-14.5) 09/30/18 06:00 Plt Count 404 K/uL (130-400) H 09/30/18 06:00 MPV 7.0 fl (7.2-11.7) L 09/29/18 23:00 Neut % (Auto) 61.0 % (50.0-75.0) 09/29/18 23:00 Lymph % (Auto) 26.8 % (20.0-40.0) 09/29/18 23:00 [place] % (Auto) 5.6 % (0.0-10.0) 09/29/18 23:00 Eos % (Auto) 5.8 % (0.0-4.0) H 09/29/18 23:00 Baso % (Auto) 0.8 % (0.0-2.0) 09/29/18 23:00 Neut # (Auto) 7.0 K/uL (1.8-7.0) 09/29/18 23:00 Lymph # (Auto) 3.1 K/uL (1.0-4.3) 09/29/18 23:00 [place] # (Auto) 0.6 K/uL (0.0-0.8) 09/29/18 23:00 Eos # (Auto) 0.7 K/uL (0.0-0.7) 09/29/18 23:00 Baso # (Auto) 0.1 K/uL (0.0-0.2) 09/29/18 23:00 Sodium 139 mmol/l (132-148) 09/29/18 23:00 Potassium 3.8 MMOL/L (3.6-5.0) 09/29/18 23:00 Chloride 104 mmol/L (98-107) 09/29/18 23:00 Carbon Dioxide 26 mmol/L (22-30) 09/29/18 23:00 Anion Gap 13 (10-20) 09/29/18 23:00 BUN 22 mg/dl (9-20) H 09/29/18 23:00 Creatinine 0.9 mg/dl (0.8-1.5) 09/29/18 23:00 Est GFR ( Amer) > 60 09/29/18 23:00 Est GFR (Non-Af Amer) > 60 09/29/18 23:00 POC Glucose (mg/dL) 188 mg/dL (65-110) H 09/30/18 16:34 Random Glucose 239 mg/dL (75-110) H 09/29/18 23:00 Lactic Acid 1.1 MMOL/L (0.7-2.1) 09/29/18 23:00 Calcium 9.2 mg/dL (8.4-10.2) 09/29/18 23:00 Total Bilirubin 0.2 mg/dl (0.2-1.3) 09/29/18 23:00 AST 19 U/L (17-59) 09/29/18 23:00 ALT 25 U/L (21-72) 09/29/18 23:00 Alkaline Phosphatase 107 U/L (38-126) 09/29/18 23:00 Total Protein 7.1 G/DL (6.3-8.2) 09/29/18 23:00 Albumin 3.5 g/dL (3.5-5.0) 09/29/18 23:00 Globulin 3.6 gm/dL (2.2-3.9) 09/29/18 23:00 Albumin/Globulin Ratio 1.0 (1.0-2.1) 09/29/18 23:00 Triglycerides 76 mg/DL (0-149) 09/30/18 06:00 Cholesterol 145 mg/dL (0-199) 09/30/18 06:00 LDL Cholesterol Direct 116 mg/dL (0-129) 09/30/18 06:00 HDL Cholesterol 26 MG/DL (30-70) L 09/30/18 06:00 TSH 3rd Generation 0.85 mIU/ML (0.46-4.68) 09/30/18 06:00 Discharge Exam - Head Exam Head Exam: ATRAUMATIC Discharge Plan - Follow Up Plan Condition: FAIR Disposition: AGAINST MEDICAL ADVICE
--- NOTE | 2018-10-01 11:44 | CARD ---
APPROVED REPORT Date of service: 09/29/2018 EKG Measurement Heart [id number] <Conclusion> Sinus rhythm with occasional premature ventricular complexes Low voltage QRS Septal infarct, age undetermined Abnormal ECG
--- NOTE | 2018-10-01 20:22 | PQF ---
PROVIDER RESPONSE TEXT: DM with Hyperglycemia REVIEWER QUERY TEXT: Diabetic Associated Manifestations Please specify any manifestations associated / due to diabetes Such as: --DM with hyperglycemia -- Diabetes with renal manifestation -- Diabetes with neurologic manifestation -- Diabetes with ophthalmic manifestation -- Diabetes with peripheral circulatory manifestation -- Other, please specify Random Glucose: 239 POC:201->164->222->188 H and P includes; 3) Uncontrolled diabetes mellitus Status: Acute Priority: High The patient's Clinical Indicators include: -- Query created by: Sarah Xiong on 10/01/2018 9:54 AM Electronically signed by: Christelle Forbes MD 10/01/2018 8:19 PM
--- NOTE | 2018-10-01 20:22 | PQF ---
PROVIDER RESPONSE TEXT: B/L Cellulitis of the feet REVIEWER QUERY TEXT: Documentation Clarification Your help is requested in clarifying the following clinical documentation, if you are in agreement wi th the diagnosis of Cellulitis of the foot: please document the laterality OR: Disagree ER MD: Impression: Cellulitis of foot, Diabetic foot ulcer ID consult Impression includes: Cellulitis of foot --IVAB The patient's Clinical Indicators include: -- Query created by: Sarah Xiong on 10/01/2018 9:59 AM Electronically signed by: Christelle Forbes MD 10/01/2018 8:19 PM
== END 2018-09-30 19:30 | disposition left against medical advice (07) | DRG 294 ==
LOC: H.ER 21:48 → H.ERHOLD 23:25 → H.MEDSURG1 09-30 02:59
PROVIDERS: ADMIT Internal Medicine; ATTEND Internal Medicine
DX: E11.621 Type 2 diabetes mellitus with foot ulcer (principal); L03.119 Cellulitis of unspecified part of limb; L97.519 Non-pressure chronic ulcer of other part of right foot with unspecified severity; E11.40 Type 2 diabetes mellitus with diabetic neuropathy, unspecified; F25.9 Schizoaffective disorder, unspecified; L97.529 Non-pressure chronic ulcer of other part of left foot with unspecified severity; E11.628 Type 2 diabetes mellitus with other skin complications; Z79.4 Long term (current) use of insulin; E11.65 Type 2 diabetes mellitus with hyperglycemia; F17.210 Nicotine dependence, cigarettes, uncomplicated; F31.9 Bipolar disorder, unspecified; I10 Essential (primary) hypertension; J45.909 Unspecified asthma, uncomplicated; F32.9 Major depressive disorder, single episode, unspecified; F41.9 Anxiety disorder, unspecified; E11.42 Type 2 diabetes mellitus with diabetic polyneuropathy; M19.90 Unspecified osteoarthritis, unspecified site